=== PATIENT | female | born 1940 | race African-American/Black ===

== ENCOUNTER 2018-06-16 10:44 | Inpatient (IN) | payer MEDICARE, MEDICAID ==
[~2018-06-16] VITALS: Ht 165.1 cm; Wt 89.4 kg
[2018-06-16 11:00] VITALS: BP 133/63
[2018-06-16] MEDS ORDERED: SYNTHROID137 MCG ORAL (11:07)
[2018-06-16] MEDS ORDERED: NORVASC10 MG ORAL (11:07)
[2018-06-16] MEDS ORDERED: FUROSEMIDE20 M1 ORAL (11:07)
[2018-06-16] MEDS ORDERED: Albuterol/Ipratropium 3ml neb HHN ONE (11:15)
[2018-06-16 11:25] LABS: BASOPHILS % (AUTO) 0.7 % (0.0-2.0); EOSINOPHILS % (AUTO) 4.3 % (0.0-3.0); HEMATOCRIT 40.7 % (37.0-47.0); HEMOGLOBIN 12.8 G/DL (12.0-16.0); LYMPHOCYTES % (AUTO) 15.3 % (20.0-45.0); MEAN CORPUSCULAR VOLUME 88 FL (80-99); MONOCYTES % (AUTO) 6.4 % (1.0-10.0); NEUTROPHILS % (AUTO) 73.3 % (45.0-75.0); PLATELET COUNT 234 K/UL (150-450); RED BLOOD COUNT 4.66 M/UL (4.20-5.40); RED CELL DISTRIBUTION WIDTH 12.5 % (11.6-14.8); WHITE BLOOD COUNT 7.3 K/UL (4.8-10.8)
[2018-06-16 11:40] LABS: ANION GAP 10 mmol/L (5-15); BLOOD UREA NITROGEN 9 mg/dL (7-18); CALCIUM 9.1 MG/DL (8.5-10.1); CARBON DIOXIDE 32 MMOL/L (21-32); CHLORIDE 100 MMOL/L (98-107); CREATININE 0.8 MG/DL (0.55-1.30); POTASSIUM 3.3 MMOL/L (3.5-5.1); SODIUM 142 MMOL/L (136-145)
[2018-06-16 11:44] LABS: ALANINE AMINOTRANSFERASE 25 U/L (12-78); ALBUMIN 3.9 G/DL (3.4-5.0); ALBUMIN/GLOBULIN RATIO 0.8 (1.0-2.7); ALKALINE PHOSPHATASE 67 U/L (46-116); ASPARTATE AMINO TRANSFERASE 27 U/L (15-37); BILIRUBIN,TOTAL 0.3 MG/DL (0.2-1.0)
[2018-06-16] MEDS ORDERED: Solu-MEDROL 125mg Inj IVP ONE (11:45)
[2018-06-16] MEDS: Albuterol ud Inhalation HHN SCH ×5 (11:56→12:40)
--- NOTE | 2018-06-16 11:56 | Emergency Room Report ---
History of Present Illness General Chief Complaint: Dyspnea/Respdistress Source: Patient Present Illness HPI 77F with sob about two days. Has COPD and has been using inhaler, no steroids. No fever, minimal nonproductive cough. No chest pain. No leg pain/swelling, no travel. This feels to patient like her COPD exacerbation. Allergies: Coded Allergies: No Known Allergies (Unverified , 06/16/18) Patient History Now: No Nursing Documentation-PMH Hx Cardiac Problems: Yes Hx Hypertension: Yes Hx Asthma: Yes - bronchitis Hx Diabetes: Yes Review of Systems Constitutional: Reports: see HPI Eye: Reports: no symptoms ENT: Reports: no symptoms Respiratory: Reports: shortness of breath, wheezing, KIRKPATRICK Cardiovascular: Reports: no symptoms Gastrointestinal: Reports: no symptoms Genitourinary: Reports: no symptoms Musculoskeletal: Reports: no symptoms Skin: Reports: no symptoms Psychiatric: Reports: no symptoms Neurological: Reports: no symptoms Endocrine: Reports: no symptoms Hematologic/Lymphatic: Reports: no symptoms Allergic: Reports: no symptoms All Other Systems: negative except mentioned in HPI Physical Exam Vital Signs Date Time Temp Pulse Resp B/P (MAP) Pulse Ox O2 Delivery O2 Flow Rate FiO2 06/16/18 10:53 97.3 98 12 152/82 92 Room Air 06/16/18 11:24 21 Sp02 EP Interpretation: reviewed, normal General Appearance: normal inspection, well appearing, no apparent distress, alert, GCS 15, non-toxic Head: normocephalic, atraumatic Eyes: bilateral eye normal inspection, bilateral eye PERRL, bilateral eye EOMI ENT: normal ENT inspection, hearing grossly normal, normal pharynx, no angioedema, normal voice, moist mucus membranes Neck: normal inspection, full range of motion, supple, no meningismus, no bony tend Respiratory: no retraction, no accessory muscle use, respiratory distress, wheezing - I:E 1:3 Cardiovascular #1: normal inspection, regular rate, rhythm, no edema Gastrointestinal: normal inspection, normal bowel sounds, non tender, soft, no mass, non-distended Musculoskeletal: gait/station normal, normal range of motion Neurologic: normal inspection, alert, oriented x3, responsive, motor strength/ tone normal Psychiatric: normal inspection, judgement/insight normal, memory normal Suicide Risk Assessment: Suicidal Ideation: No Had intent to initiate attempt: No Pt's plan for suicide attempt: No Has means to complete attempt: No Skin: normal inspection, normal color, no rash, warm/dry Medical Decision Making Diagnostic Impression: Primary Impression: COPD exacerbation ER Course one hour: after first round of nebs only minimal improvement, rr ~20, still insp /expir wheeze all islas I:E 1:3 two hours: +/- slight improvement in that there is slightly improved air exchange but wheezing is essentially the same after four nebs and Solu-Medrol Will admit to monitor resp status and repeated nebs. Dr. Watson aware. EKG Diagnostic Results EKG Time: 12:53 EP Interpretation: 86 Rate: normal Rhythm: NSR ST Segments: no acute changes ASA given to the pt in ED: No Rhythm Strip Diag. Results Rhythm Strip Time: 12:53 EP Interpretation: yes Rate: 87 Rhythm: NSR Last Vital Signs Date Time Temp Pulse Resp B/P (MAP) Pulse Ox O2 Delivery O2 Flow Rate FiO2 06/16/18 11:32 85 14 100 Room Air 21 06/16/18 10:53 97.3 152/82 Status: unchanged Disposition: ADMITTED INPATIENT Condition: Serious Leif Crandall M.D. Jun 16, 2018 11:56
[2018-06-16 12:00] VITALS: BP 130/62
--- NOTE | 2018-06-16 12:38 | Diagnostic Imaging Report ---
Indication: Chest pain Comparison: None A single view chest radiograph was obtained. Findings: No definite infiltrate or pulmonary vascular congestion identified. There are surgical clips at the base of the neck. The heart is enlarged. The aorta is mildly enlarged consistent with atherosclerotic vascular disease. The bones are osteopenic. Impression: No acute disease
[2018-06-16 13:00] VITALS: BP 119/57
[2018-06-16] MEDS ORDERED: LORazepam Inj 2mg/ml 1ml IV PRN (13:45)
[2018-06-16] MEDS ORDERED: Morphine Sulfate 2mg/ml Inj IVP PRN (13:45)
[2018-06-16] MEDS ORDERED: Nitroglycerin Subl 0.4mg tab SL PRN (13:45)
[2018-06-16] MEDS ORDERED: Promethazine/Codeine 5ml UD ORAL PRN (13:45)
--- NOTE | 2018-06-16 13:45 | Consultation ---
History of Present Illness General Date patient seen: Jun 16, 2018 Chief Complaint: Dyspnea/Respdistress Present Illness HPI 77 year old female with hx of CHF, HTN, DM, CAD, presented to ER with CC of sob about two days. No fever, minimal nonproductive cough. No chest pain. No leg pain/swelling, no travel. Her CXR didn't show any infiltrate. She is admitted for exacerbation of COPD. Allergies: Coded Allergies: No Known Allergies (Unverified , 06/16/18) Medication History Scheduled Amlodipine Besylate (Norvasc), 10 MG ORAL DAILY, (Reported) Biotin (Biotin), Unknown Dose PO DAILY, (Reported) Fish Oil (Fish Oil 1,000 mg Capsule), Unknown Dose ORAL DAILY, (Reported) Furosemide* (Lasix*), 40 MG ORAL DAILY, (Reported) Gabapentin* (Gabapentin*), 800 MG ORAL THREE TIMES A DAY, (Reported) Ibuprofen* (Motrin*), 800 MG ORAL THREE TIMES A DAY, (Reported) Isosorbide Dinitrate (Isordil*), 20 MG ORAL BID, (Reported) Levothyroxine Sodium* (Synthroid*), 100 MCG ORAL DAILY, (Reported) Multivitamins* (Multivitamins*), 1 TAB ORAL DAILY, (Reported) Omeprazole (Omeprazole), 40 MG ORAL DAILY, (Reported) Potassium Chloride (Potassium Chloride), 8 MEQ PO BID, (Reported) Rosuvastatin Calcium* (Crestor*), 10 MG ORAL DAILY, (Reported) Sitagliptin* (Januvia*), 100 MG ORAL DAILY, (Reported) Vitamin D (Vitamin D3), Unknown Dose ORAL DAILY, (Reported) Miscellaneous Medications Albuterol Sulfate (Ventolin Hfa), Unknown Dose INH, (Reported) Discontinued Medications Furosemide* (Lasix*), 40 MG ORAL DAILY, (Reported) Discontinued Reason: Prescription changed Levothyroxine Sodium (Synthroid), 100 MCG ORAL DAILY, (Reported) Discontinued Reason: Prescription changed Patient History Healthcare decision maker Resuscitation status Advanced Directive on File Past Medical/Surgical History Past Medical/Surgical History: (1) History of chronic CHF (2) Hypothyroidism (3) History of hypertension Review of Systems All Other Systems: negative except mentioned in HPI Physical Exam General Appearance: WD/WN Lines, tubes and drains: peripheral HEENT: normocephalic, atraumatic, anicteric Neck: non-tender, normal alignment Respiratory/Chest: chest wall non-tender, lungs clear Breasts: no masses Last 24 Hour Vital Signs Date Time Temp Pulse Resp B/P (MAP) Pulse Ox O2 Delivery O2 Flow Rate FiO2 06/16/18 12:45 87 12 100 Room Air 21 06/16/18 12:35 82 16 96 06/16/18 12:35 21 06/16/18 12:12 21 06/16/18 12:12 83 16 99 06/16/18 12:11 84 16 100 Room Air 21 06/16/18 11:58 85 18 95 06/16/18 11:58 21 06/16/18 11:32 85 14 100 Room Air 21 06/16/18 11:24 21 06/16/18 11:24 88 22 Room Air 95 06/16/18 11:24 88 22 95 21 06/16/18 11:00 97.5 84 14 133/63 100 Room Air 06/16/18 11:00 83 18 Room Air 06/16/18 10:53 97.3 98 12 152/82 92 Room Air Laboratory Tests Test 06/16/18 10:50 White Blood Count 7.3 K/UL (4.8-10.8) Red Blood Count 4.66 M/UL (4.20-5.40) Hemoglobin 12.8 G/DL (12.0-16.0) Hematocrit 40.7 % (37.0-47.0) Mean Corpuscular Volume 88 FL (80-99) Mean Corpuscular Hemoglobin 27.5 PG (27.0-31.0) Mean Corpuscular Hemoglobin Concent 31.4 G/DL (32.0-36.0) L Red Cell Distribution Width 12.5 % (11.6-14.8) Platelet Count 234 K/UL (150-450) Mean Platelet Volume 8.2 FL (6.5-10.1) Neutrophils (%) (Auto) 73.3 % (45.0-75.0) Lymphocytes (%) (Auto) 15.3 % (20.0-45.0) L Monocytes (%) (Auto) 6.4 % (1.0-10.0) Eosinophils (%) (Auto) 4.3 % (0.0-3.0) H Basophils (%) (Auto) 0.7 % (0.0-2.0) Sodium Level 142 MMOL/L (136-145) Potassium Level 3.3 MMOL/L (3.5-5.1) L Chloride Level 100 MMOL/L (98-107) Carbon Dioxide Level 32 MMOL/L (21-32) Anion Gap 10 mmol/L (5-15) Blood Urea Nitrogen 9 mg/dL (7-18) Creatinine 0.8 MG/DL (0.55-1.30) Estimat Glomerular Filtration Rate mL/min (>60) Glucose Level 173 MG/DL (74-106) H Calcium Level 9.1 MG/DL (8.5-10.1) Total Bilirubin 0.3 MG/DL (0.2-1.0) Aspartate Amino Transf (AST/SGOT) 27 U/L (15-37) Alanine Aminotransferase (ALT/SGPT) 25 U/L (12-78) Alkaline Phosphatase 67 U/L (46-116) Total Protein 8.7 G/DL (6.4-8.2) H Albumin 3.9 G/DL (3.4-5.0) Globulin 4.8 g/dL Albumin/Globulin Ratio 0.8 (1.0-2.7) L Height (Feet): 5 Height (Inches): 5.00 Weight (Pounds): 190 Medications Current Medications Medications (Trade) Dose Ordered Sig/Kathryn Route PRN Reason Start Time Stop Time Status Last Admin Dose Admin Albuterol Sulfate (Proventil) 2.5 mg Q15M HHN 06/16/18 11:45 06/21/18 11:44 06/16/18 12:40 Albuterol/ Ipratropium (Albuterol/ Ipratropium) 3 ml EVERY 4 HOURS PRN HHN dyspnea 06/16/18 13:45 06/21/18 13:44 UNV Amlodipine Besylate (Norvasc) 10 mg DAILY ORAL 06/17/18 09:00 07/17/18 08:59 UNV Dextrose (Dextrose 50%) 25 ml Q30M PRN IV Hypoglycemia 06/16/18 13:45 07/16/18 13:44 UNV Dextrose (Dextrose 50%) 50 ml Q30M PRN IV Hypoglycemia 06/16/18 13:45 07/16/18 13:44 UNV Heparin Sodium (Porcine) (Heparin 5000 units/ml) 5,000 units EVERY 12 HOURS SUBQ 06/16/18 21:00 07/16/18 20:59 UNV Levothyroxine Sodium (Synthroid) 125 mcg DAILY@0630 ORAL 06/17/18 06:30 07/17/18 06:29 UNV Lorazepam (Ativan 2mg/ml 1ml) 0.5 mg Q4H PRN IV For Anxiety 06/16/18 13:45 06/23/18 13:44 UNV Methylprednisolone Sodium Succinate (Solu-MEDROL) 60 mg EVERY 6 HOURS IV 06/16/18 18:00 07/16/18 17:59 UNV Morphine Sulfate (Morphine Sulfate) 2 mg EVERY 4 HOURS PRN IVP severe pain 7-10 06/16/18 13:45 06/23/18 13:44 UNV Nitroglycerin (Ntg) 0.4 mg Q5M X 3 DOSES PRN SL Prn Chest Pain 06/16/18 13:45 07/16/18 13:44 UNV Ondansetron HCl (Zofran) 4 mg Q6H PRN IVP Nausea & Vomiting 06/16/18 13:45 07/16/18 13:44 UNV Piperacillin Sod/ Tazobactam Sod 2.25 gm/Dextrose 55 ml @ 110 mls/hr EVERY 8 HOURS IV 06/16/18 14:00 06/21/18 13:59 UNV Promethazine HCl/ Codeine (Phenergan with Codeine) 5 ml EVERY 6 HOURS PRN ORAL cough 06/16/18 13:45 07/16/18 13:44 UNV Temazepam (Restoril) 15 mg HSPRN PRN ORAL Insomnia 06/16/18 13:45 06/23/18 13:44 UNV Theophylline (Juan M-Dur) 100 mg EVERY 12 HOURS ORAL 06/16/18 21:00 07/16/18 20:59 UNV Assessment/Plan Problem List: (1) COPD exacerbation ICD Codes: J44.1 - Chronic obstructive pulmonary disease with (acute) exacerbation SNOMED: 655368093 (2) Hypothyroidism ICD Codes: E03.9 - Hypothyroidism, unspecified SNOMED: 64138893 (3) History of chronic CHF ICD Codes: Z86.79 - Personal history of other diseases of the circulatory system SNOMED: 401871172 (4) History of hypertension ICD Codes: Z86.79 - Personal history of other diseases of the circulatory system SNOMED: 896011853 Assessment/Plan respiratory treatment iv steroids iv abx check sputum check T3, T4 continue synthyroid dvt prophylaxis Carrie Scales MD Jun 16, 2018 13:45
[2018-06-16 14:00] VITALS: BP 150/81
[2018-06-16 15:02] VITALS: BP 133/63
[2018-06-16] MEDS: Albuterol/Ipratropium 3ml neb HHN PRN ×2 (15:25→21:52)
[2018-06-16] MEDS ORDERED: SYNTHROID100 MCG ORAL (17:28)
[2018-06-16] MEDS ORDERED: FUROSEMIDE40 MG ORAL (17:28)
[2018-06-16] MEDS ORDERED: JANUVIA25 MG ORAL (17:37)
[2018-06-16] MEDS ORDERED: POTASSIUM CHLOR8 ME2 PO (17:37)
[2018-06-16] MEDS ORDERED: ISORDIL40 MG ORAL (17:37)
[2018-06-16] MEDS ORDERED: BIOTIN10 MG PO (17:37)
[2018-06-16] MEDS ORDERED: GABAPENTIN800 MG ORAL (17:37)
[2018-06-16] MEDS ORDERED: OMEPRAZOLE40 M1 ORAL (17:37)
[2018-06-16] MEDS ORDERED: IBUPROFEN600 MG ORAL (17:37)
[2018-06-16] MEDS ORDERED: FISH OIL CAP1000 MG ORAL (17:37)
[2018-06-16] MEDS ORDERED: VENTOLIN HFA18 GM INH (17:37)
[2018-06-16] MEDS ORDERED: MULTIVITAMINS1 EAC2 ORAL (17:37)
[2018-06-16] MEDS ORDERED: CRESTOR10 M2 ORAL (17:37)
[2018-06-16] MEDS ORDERED: VITAMIN D400 INTLU ORAL (17:37)
[2018-06-16 20:00] VITALS: BP 148/76
[2018-06-16] MEDS: Solu-MEDROL 125mg Inj IV SCH (21:06)
[2018-06-16] MEDS: Piperacillin/Tazobactam 3.375 GM in D5W 110 ML IVPB SCH (21:07)
[2018-06-16] MEDS: sitaGLIPtin 50mg tab ORAL SCH (21:08)
[2018-06-16] MEDS: Theophylline ER 100mg ORAL SCH (21:08)
[2018-06-16] MEDS: Heparin 5000 units/ml inj SUBQ SCH (21:09)
--- NOTE | 2018-06-16 22:15 | History and Physical Report ---
DATE OF ADMISSION: 06/16/2018 APPROXIMATE TIME: 2 p.m. SERVICE PROMOTER SALESPERSON: Carrie Scales M.D. CHIEF COMPLAINT: Shortness of breath and COPD exacerbation. BRIEF HISTORY: A 77-year-old female, who lives at home, presented with increased shortness of breath for about a month intermittently. The patient is slightly wheezing, feeling very weak, came to [place], diagnosed with COPD exacerbation, and being admitted shortly. Currently calm and slight short of breath in the ER g[place]. No complaint. REVIEW OF SYSTEMS: No chest pain. Slight short of breath. No nausea, vomiting, or diarrhea. PAST MEDICAL HISTORY: Includes COPD, hypothyroid, diabetes, and hypertension. PAST SURGICAL HISTORY: Thyroidectomy. ALLERGIES: Denies. SOCIAL HISTORY: No smoking. No alcohol. No intravenous drug abuse. FAMILY HISTORY: Noncontributory. PHYSICAL EXAMINATION: GENERAL: Slightly anxious in bed, oriented x3, slight short of breath. VITAL SIGNS: Temperature is not given, pulse 87, respirations 12, and blood pressure is pending. CARDIOVASCULAR: No murmur. LUNGS: Poor air exchange. Slight wheeze bilaterally. ABDOMEN: Bowel sounds positive. Nontender and nondistended. EXTREMITIES: No cyanosis, clubbing, or edema. NEUROLOGIC: The patient moves all extremities, slightly weak. LABORATORY DATA: CBC is normal. BMP shows potassium 3.3 and glucose 173. Otherwise, BMP is normal. MEDICATIONS: Include amlodipine, levothyroxine, heparin, theophylline, methylprednisolone, Zosyn, lorazepam, morphine, nitroglycerin, and Zofran. ASSESSMENT: 1. Chronic obstructive pulmonary disease exacerbation. 2. Wheezing. 3. Diabetes. 4. Hypertension. 5. Hypothyroid. 6. Hypokalemia. PLAN: 1. O2 and pulmonary treatment. 2. Antibiotics as ordered. 3. Blood pressure and blood sugar control. 4. Taper off steroids. 5. Dietary followup. 6. OT, PT, and dietary evaluation. 7. CBC and BMP in the morning. 8. Continue to follow this patient. Johnny Watson D.O. DR: PINEDA JOB#: [id number] CC:
[2018-06-17] VITALS: BP_SYST 147; BP_SYST 148; BP_DIAS 68; BP_DIAS 76
[2018-06-17] MEDS: Solu-MEDROL 125mg Inj IV SCH ×3 (01:21→11:54)
[2018-06-17] MEDS: Albuterol/Ipratropium 3ml neb HHN PRN (03:29)
[2018-06-17 04:00] VITALS: BP_SYST 121; BP_SYST 147; BP_DIAS 53; BP_DIAS 68
[2018-06-17] MEDS: Piperacillin/Tazobactam 3.375 GM in D5W 110 ML IVPB SCH ×3 (04:28→23:20)
[2018-06-17] MEDS: Levothyroxine 125mcg tab ORAL SCH (06:35)
[2018-06-17 07:18] LABS: HEMATOCRIT 37.9 % (37.0-47.0); HEMOGLOBIN 12.4 G/DL (12.0-16.0); MEAN CORPUSCULAR VOLUME 87 FL (80-99); PLATELET COUNT 196 K/UL (150-450); RED BLOOD COUNT 4.36 M/UL (4.20-5.40); RED CELL DISTRIBUTION WIDTH 12.4 % (11.6-14.8); WHITE BLOOD COUNT 4.6 K/UL (4.8-10.8)
[2018-06-17 07:33] LABS: ANION GAP 9 mmol/L (5-15); BLOOD UREA NITROGEN 12 mg/dL (7-18); CALCIUM 9.4 MG/DL (8.5-10.1); CARBON DIOXIDE 31 MMOL/L (21-32); CHLORIDE 102 MMOL/L (98-107); CREATININE 0.7 MG/DL (0.55-1.30); POTASSIUM 3.1 MMOL/L (3.5-5.1); SODIUM 142 MMOL/L (136-145)
[2018-06-17 08:00] VITALS: BP 120/54
[2018-06-17] MEDS: Theophylline ER 100mg ORAL SCH ×2 (09:14→21:23)
[2018-06-17] MEDS: Heparin 5000 units/ml inj SUBQ SCH ×2 (09:15→21:24)
[2018-06-17] MEDS: Albuterol/Ipratropium 3ml neb HHN SCH ×4 (11:34→23:33)
[2018-06-17 12:00] VITALS: BP 126/58
--- NOTE | 2018-06-17 12:37 | Pulmonology Progress Note ---
Assessment/Plan Problems: (1) COPD exacerbation (2) Hypothyroidism (3) History of chronic CHF (4) History of hypertension Assessment/Plan doing better respiratory treatment iv steroids, taper fast iv abx check sputum check T3, T4 continue synthyroid dvt prophylaxis Subjective ROS Limited/Unobtainable: No Constitutional: Reports: no symptoms HEENT: Repors: no symptoms Respiratory: Reports: no symptoms Allergies: Coded Allergies: No Known Allergies (Unverified , 06/16/18) Objective Last 24 Hour Vital Signs Date Time Temp Pulse Resp B/P (MAP) Pulse Ox O2 Delivery O2 Flow Rate FiO2 06/17/18 12:00 98.1 92 20 126/58 (80) 96 06/17/18 11:36 88 22 Room Air 95 06/17/18 09:14 99 120/54 06/17/18 09:00 Nasal Cannula 2.0 Nasal Cannula 2.0 06/17/18 08:00 98.4 99 20 120/54 (76) 96 06/17/18 07:46 107 06/17/18 04:00 98.2 108 20 121/53 (75) 95 06/17/18 04:00 108 06/17/18 03:40 107 20 97 Nasal Cannula 2.0 06/17/18 03:29 106 22 94 Nasal Cannula 2.0 06/17/18 00:00 94 06/17/18 00:00 99.0 110 20 147/68 (94) 96 06/16/18 22:03 90 18 99 Nasal Cannula 2.0 28 06/16/18 22:03 21 06/16/18 21:53 89 20 97 Nasal Cannula 2.0 06/16/18 20:00 108 06/16/18 20:00 98.1 108 20 148/76 (100) 96 06/16/18 19:52 102 20 Nasal Cannula 2.0 06/16/18 19:30 Nasal Cannula 2.0 06/16/18 17:56 97.9 100 17 140/71 95 Nasal Cannula 2.0 06/16/18 15:33 Nasal Cannula 2.0 28 06/16/18 15:25 21 06/16/18 15:25 96 20 95 06/16/18 15:02 90 30 133/63 94 Nasal Cannula 2.0 06/16/18 14:00 95 18 150/81 90 Room Air 06/16/18 13:00 90 16 119/57 100 Room Air 06/16/18 12:45 87 12 100 Room Air 21 Intake and Output 06/16/18 06/17/18 18:59 06:59 Intake Total 200 ml Balance 200 ml Intake Oral 200 ml # Voids 1 1 # Bowel Movements 1 General Appearance: cachetic HEENT: normocephalic, atraumatic Respiratory/Chest: chest wall non-tender, lungs clear Breasts: no masses Cardiovascular: normal peripheral pulses Abdomen: normal bowel sounds, soft, non tender Extremities: no cyanosis Skin: no rash Neurologic/Psychiatric: air bag stripper II-XII grossly normal Lymphatic: no neck adenopathy Laboratory Tests 06/17/18 05:47: White Blood Count 4.6L, Red Blood Count 4.36, Hemoglobin 12.4, Hematocrit 37.9, Mean Corpuscular Volume 87, Mean Corpuscular Hemoglobin 28.4, Mean Corpuscular Hemoglobin Concent 32.7, Red Cell Distribution Width 12.4, Platelet Count 196, Mean Platelet Volume 8.0, Neutrophils (%) (Auto) , Lymphocytes (%) (Auto) , Monocytes (%) (Auto) , Eosinophils (%) (Auto) , Basophils (%) (Auto) , Differential Total Cells Counted 100, Neutrophils % (Manual) 84H, Lymphocytes % (Manual) 13L, Monocytes % (Manual) 3, Eosinophils % (Manual) 0, Basophils % ( Manual) 0, Band Neutrophils 0, Platelet Estimate Adequate, Platelet Morphology Normal, Red Blood Cell Morphology Normal, Sodium Level 142, Potassium Level 3.1L , Chloride Level 102, Carbon Dioxide Level 31, Anion Gap 9, Blood Urea Nitrogen 12, Creatinine 0.7, Estimat Glomerular Filtration Rate , Glucose Level 162H, Calcium Level 9.4, Thyroid Stimulating Hormone (TSH) 1.935 Current Medications Medications (Trade) Dose Ordered Sig/Kathryn Route PRN Reason Start Time Stop Time Status Last Admin Dose Admin Acetaminophen (Tylenol) 650 mg Q6H PRN ORAL Mild Pain/Temp > 100.5 06/17/18 03:00 07/17/18 02:59 06/17/18 03:23 Albuterol/ Ipratropium (Albuterol/ Ipratropium) 3 ml Q4H PRN HHN dyspnea 06/16/18 13:45 06/21/18 13:44 06/17/18 03:29 Albuterol/ Ipratropium (Albuterol/ Ipratropium) 3 ml Q4HRT HHN 06/17/18 11:00 06/22/18 10:59 06/17/18 11:34 Amlodipine Besylate (Norvasc) 10 mg DAILY ORAL 06/17/18 09:00 07/17/18 08:59 06/17/18 09:14 Dextrose (Dextrose 50%) 25 ml Q30M PRN IV Hypoglycemia 06/16/18 13:45 07/16/18 13:44 Dextrose (Dextrose 50%) 50 ml Q30M PRN IV Hypoglycemia 06/16/18 13:45 07/16/18 13:44 Heparin Sodium (Porcine) (Heparin 5000 units/ml) 5,000 units EVERY 12 HOURS SUBQ 06/16/18 21:00 07/16/18 20:59 06/17/18 09:15 Levothyroxine Sodium (Synthroid) 125 mcg DAILY@0630 ORAL 06/17/18 06:30 07/17/18 06:29 06/17/18 06:35 Lorazepam (Ativan 2mg/ml 1ml) 0.5 mg Q4H PRN IV For Anxiety 06/16/18 13:45 06/23/18 13:44 Methylprednisolone Sodium Succinate (Solu-MEDROL) 60 mg EVERY 6 HOURS IV 06/16/18 18:00 07/16/18 17:59 06/17/18 11:54 Morphine Sulfate (Morphine Sulfate) 2 mg Q4H PRN IVP severe pain 7-10 06/16/18 13:45 06/23/18 13:44 Nitroglycerin (Ntg) 0.4 mg Q5M X 3 DOSES PRN SL Prn Chest Pain 06/16/18 13:45 07/16/18 13:44 Ondansetron HCl (Zofran) 4 mg Q6H PRN IVP Nausea & Vomiting 06/16/18 13:45 07/16/18 13:44 Piperacillin Sod/ Tazobactam Sod 3.375 gm/Dextrose 110 ml @ 27.5 mls/hr Q8H IVPB 06/16/18 20:00 06/23/18 19:59 06/17/18 11:53 Promethazine HCl/ Codeine (Phenergan with Codeine) 5 ml Q6H PRN ORAL cough 06/16/18 13:45 07/16/18 13:44 Sitagliptin Phosphate (Januvia) 50 mg QHS ORAL 06/16/18 21:00 07/16/18 20:59 06/16/18 21:08 Temazepam (Restoril) 15 mg HSPRN PRN ORAL Insomnia 06/16/18 13:45 06/23/18 13:44 Theophylline (Juan M-Dur) 100 mg EVERY 12 HOURS ORAL 06/16/18 21:00 07/16/18 20:59 06/17/18 09:14 Carrie Scales MD Jun 17, 2018 12:37
--- NOTE | 2018-06-17 15:09 | General Progress Note ---
Assessment/Plan Problem List: (1) SOB (shortness of breath) ICD Codes: R06.02 - Shortness of breath SNOMED: 280475320 (2) History of chronic CHF ICD Codes: Z86.79 - Personal history of other diseases of the circulatory system SNOMED: 480146366 (3) Hypothyroidism ICD Codes: E03.9 - Hypothyroidism, unspecified SNOMED: 09897296 (4) History of hypertension ICD Codes: Z86.79 - Personal history of other diseases of the circulatory system SNOMED: 469114249 (5) COPD exacerbation ICD Codes: J44.1 - Chronic obstructive pulmonary disease with (acute) exacerbation SNOMED: 415121838 Status: unchanged Assessment/Plan o2 pulm tx abx ot pt diet cbc bmap am Subjective Constitutional: Reports: weakness Respiratory: Reports: shortness of breath, wheezing Allergies: Coded Allergies: No Known Allergies (Unverified , 06/16/18) All Systems: reviewed and negative except above Subjective o2nc Objective Last 24 Hour Vital Signs Date Time Temp Pulse Resp B/P (MAP) Pulse Ox O2 Delivery O2 Flow Rate FiO2 06/17/18 12:00 98.1 92 20 126/58 (80) 96 06/17/18 11:51 112 06/17/18 11:36 88 22 Room Air 95 06/17/18 09:14 99 120/54 06/17/18 09:00 Nasal Cannula 2.0 Nasal Cannula 2.0 06/17/18 08:00 98.4 99 20 120/54 (76) 96 06/17/18 07:46 107 06/17/18 04:00 98.2 108 20 121/53 (75) 95 06/17/18 04:00 108 06/17/18 03:40 107 20 97 Nasal Cannula 2.0 06/17/18 03:29 106 22 94 Nasal Cannula 2.0 28 06/17/18 00:00 94 06/17/18 00:00 99.0 110 20 147/68 (94) 96 06/16/18 22:03 90 18 99 Nasal Cannula 2.0 28 06/16/18 22:03 21 06/16/18 21:53 89 20 97 Nasal Cannula 2.0 28 06/16/18 20:00 108 06/16/18 20:00 98.1 108 20 148/76 (100) 96 06/16/18 19:52 102 20 Nasal Cannula 2.0 06/16/18 19:30 Nasal Cannula 2.0 06/16/18 17:56 97.9 100 17 140/71 95 Nasal Cannula 2.0 06/16/18 15:33 Nasal Cannula 2.0 06/16/18 15:25 21 06/16/18 15:25 96 20 95 Intake and Output 06/16/18 06/17/18 18:59 06:59 Intake Total 200 ml Balance 200 ml Intake Oral 200 ml # Voids 1 1 # Bowel Movements 1 Laboratory Tests 06/17/18 05:47: White Blood Count 4.6L, Red Blood Count 4.36, Hemoglobin 12.4, Hematocrit 37.9, Mean Corpuscular Volume 87, Mean Corpuscular Hemoglobin 28.4, Mean Corpuscular Hemoglobin Concent 32.7, Red Cell Distribution Width 12.4, Platelet Count 196, Mean Platelet Volume 8.0, Neutrophils (%) (Auto) , Lymphocytes (%) (Auto) , Monocytes (%) (Auto) , Eosinophils (%) (Auto) , Basophils (%) (Auto) , Differential Total Cells Counted 100, Neutrophils % (Manual) 84H, Lymphocytes % (Manual) 13L, Monocytes % (Manual) 3, Eosinophils % (Manual) 0, Basophils % ( Manual) 0, Band Neutrophils 0, Platelet Estimate Adequate, Platelet Morphology Normal, Red Blood Cell Morphology Normal, Sodium Level 142, Potassium Level 3.1L , Chloride Level 102, Carbon Dioxide Level 31, Anion Gap 9, Blood Urea Nitrogen 12, Creatinine 0.7, Estimat Glomerular Filtration Rate , Glucose Level 162H, Calcium Level 9.4, Thyroid Stimulating Hormone (TSH) 1.935 Height (Feet): 5 Height (Inches): 5.00 Weight (Pounds): 197 General Appearance: alert EENT: normal ENT inspection Neck: normal alignment Cardiovascular: normal peripheral pulses, normal rate, regular rhythm Respiratory/Chest: chest wall non-tender, lungs clear, decreased breath sounds Abdomen: normal bowel sounds, non tender, soft Extremities: normal inspection Edema: no edema noted Arm (L), no edema noted Arm (R), no edema noted Leg (L), no edema noted Leg (R), no edema noted Pedal (L), no edema noted Pedal (R), no edema noted Generalized Neurologic: responsive, motor weakness Skin: normal pigmentation, warm/dry Johnny Watson DO Jun 17, 2018 15:09
[2018-06-17 16:00] VITALS: BP 152/94
[2018-06-17 20:00] VITALS: BP 135/74
[2018-06-17] MEDS: sitaGLIPtin 50mg tab ORAL SCH (21:22)
[2018-06-18] VITALS: BP 144/85
[2018-06-18] MEDS: Albuterol/Ipratropium 3ml neb HHN SCH ×6 (02:37→22:46)
[2018-06-18 04:00] VITALS: BP 116/67
[2018-06-18] MEDS: Levothyroxine 125mcg tab ORAL SCH (06:11)
[2018-06-18] MEDS: Piperacillin/Tazobactam 3.375 GM in D5W 110 ML IVPB SCH ×3 (06:14→23:00)
[2018-06-18 08:00] VITALS: BP 135/74
[2018-06-18] MEDS: Theophylline ER 100mg ORAL SCH ×2 (08:48→21:35)
[2018-06-18] MEDS: Heparin 5000 units/ml inj SUBQ SCH ×2 (08:50→21:43)
[2018-06-18] MEDS ORDERED: Solu-MEDROL 125mg Inj IV SCH (09:00)
[2018-06-18 09:24] LABS: ANION GAP 10 mmol/L (5-15); BLOOD UREA NITROGEN 12 mg/dL (7-18); CALCIUM 9.7 MG/DL (8.5-10.1); CARBON DIOXIDE 30 MMOL/L (21-32); CHLORIDE 103 MMOL/L (98-107); CREATININE 0.8 MG/DL (0.55-1.30); POTASSIUM 3.5 MMOL/L (3.5-5.1); SODIUM 142 MMOL/L (136-145)
[2018-06-18 09:42] LABS: HEMOGLOBIN 13.7 G/DL (12.0-16.0); MEAN CORPUSCULAR VOLUME 87 FL (80-99); PLATELET COUNT 266 K/UL (150-450); RED BLOOD COUNT 4.82 M/UL (4.20-5.40); RED CELL DISTRIBUTION WIDTH 12.8 % (11.6-14.8); WHITE BLOOD COUNT 11.9 K/UL (4.8-10.8)
--- NOTE | 2018-06-18 11:31 | Pulmonology Progress Note ---
Assessment/Plan Problems: (1) COPD exacerbation (2) Hypothyroidism (3) History of chronic CHF (4) History of hypertension Assessment/Plan doing better respiratory treatment iv steroids, taper fast, now 40 QD iv abx check sputum check T3, T4 continue Synthyroid dvt prophylaxis Subjective ROS Limited/Unobtainable: No Interval Events: still has productive cough of greenish sputum, but getting better. Allergies: Coded Allergies: No Known Allergies (Unverified , 06/16/18) Objective Last 24 Hour Vital Signs Date Time Temp Pulse Resp B/P (MAP) Pulse Ox O2 Delivery O2 Flow Rate FiO2 06/18/18 09:00 Nasal Cannula 2.0 Nasal Cannula 2.0 06/18/18 08:48 105 135/74 06/18/18 08:00 99.1 105 18 135/74 (94) 94 06/18/18 07:58 102 18 95 Nasal Cannula 3.0 32 06/18/18 07:57 95 Nasal Cannula 3.0 32 06/18/18 07:57 Nasal Cannula 3.0 32 06/18/18 07:50 98 22 Nasal Cannula 2.0 28 06/18/18 07:50 98 22 90 Room Air 21 06/18/18 04:00 98.9 18 116/67 (83) 97 06/18/18 04:00 88 06/18/18 02:41 96 20 96 Nasal Cannula 2.0 28 06/18/18 02:36 94 24 94 Nasal Cannula 2.0 28 06/18/18 00:00 99 06/18/18 00:00 98.0 99 20 144/85 (104) 97 06/17/18 23:42 95 20 95 Nasal Cannula 2.0 28 06/17/18 23:33 95 24 93 Nasal Cannula 2.0 28 06/17/18 21:00 Nasal Cannula 2.0 Nasal Cannula 2.0 06/17/18 20:00 99.1 95 20 135/74 (94) 94 06/17/18 20:00 95 06/17/18 19:29 99 20 97 Nasal Cannula 2.0 28 06/17/18 19:21 102 24 92 Nasal Cannula 2.0 28 06/17/18 19:19 100 24 Nasal Cannula 2.0 28 06/17/18 16:04 96 20 97 Nasal Cannula 2.0 28 06/17/18 16:00 99.0 104 21 152/94 (113) 95 06/17/18 15:52 97 20 93 Nasal Cannula 2.0 28 06/17/18 15:47 99 06/17/18 12:00 98.1 92 20 126/58 (80) 96 06/17/18 11:51 112 06/17/18 11:36 88 22 Room Air 95 Intake and Output 06/17/18 06/18/18 18:59 06:59 Intake Total 1040 ml 240 ml Balance 1040 ml 240 ml Intake Oral 1040 ml 240 ml # Voids 5 3 General Appearance: WD/WN HEENT: normocephalic, atraumatic Respiratory/Chest: chest wall non-tender, lungs clear Breasts: no masses Cardiovascular: normal peripheral pulses Abdomen: normal bowel sounds, soft, non tender, no organomegaly Neurologic/Psychiatric: rv servicer II-XII grossly normal Lymphatic: no neck adenopathy Laboratory Tests 06/18/18 07:55: White Blood Count 11.9#H, Red Blood Count 4.82, Hemoglobin 13.7, Hematocrit 42.0 , Mean Corpuscular Volume 87, Mean Corpuscular Hemoglobin 28.4, Mean Corpuscular Hemoglobin Concent 32.6, Red Cell Distribution Width 12.8, Platelet Count 266, Mean Platelet Volume 8.9, Neutrophils (%) (Auto) , Lymphocytes (%) ( Auto) , Monocytes (%) (Auto) , Eosinophils (%) (Auto) , Basophils (%) (Auto) , Neutrophils % (Manual) [Pending], Lymphocytes % (Manual) [Pending], Platelet Estimate [Pending], Platelet Morphology [Pending], Sodium Level 142, Potassium Level 3.5, Chloride Level 103, Carbon Dioxide Level 30, Anion Gap 10, Blood Urea Nitrogen 12, Creatinine 0.8, Estimat Glomerular Filtration Rate , Glucose Level 107H, Calcium Level 9.7 Current Medications Medications (Trade) Dose Ordered Sig/Kathryn Route PRN Reason Start Time Stop Time Status Last Admin Dose Admin Acetaminophen (Tylenol) 650 mg Q6H PRN ORAL Mild Pain/Temp > 100.5 06/17/18 03:00 07/17/18 02:59 06/17/18 03:23 Albuterol/ Ipratropium (Albuterol/ Ipratropium) 3 ml Q4H PRN HHN dyspnea 06/16/18 13:45 06/21/18 13:44 06/17/18 03:29 Albuterol/ Ipratropium (Albuterol/ Ipratropium) 3 ml Q4HRT HHN 06/17/18 11:00 06/22/18 10:59 06/18/18 07:51 Amlodipine Besylate (Norvasc) 10 mg DAILY ORAL 06/17/18 09:00 07/17/18 08:59 06/18/18 08:48 Dextrose (Dextrose 50%) 25 ml Q30M PRN IV Hypoglycemia 06/16/18 13:45 07/16/18 13:44 Dextrose (Dextrose 50%) 50 ml Q30M PRN IV Hypoglycemia 06/16/18 13:45 07/16/18 13:44 Heparin Sodium (Porcine) (Heparin 5000 units/ml) 5,000 units EVERY 12 HOURS SUBQ 06/16/18 21:00 07/16/18 20:59 06/18/18 08:50 Levothyroxine Sodium (Synthroid) 125 mcg DAILY@0630 ORAL 06/17/18 06:30 07/17/18 06:29 06/18/18 06:11 Lorazepam (Ativan 2mg/ml 1ml) 0.5 mg Q4H PRN IV For Anxiety 06/16/18 13:45 06/23/18 13:44 Methylprednisolone Sodium Succinate (Solu-MEDROL) 60 mg DAILY IV 06/18/18 09:00 07/16/18 17:59 06/18/18 08:48 Morphine Sulfate (Morphine Sulfate) 2 mg Q4H PRN IVP severe pain 7-10 06/16/18 13:45 06/23/18 13:44 Nitroglycerin (Ntg) 0.4 mg Q5M X 3 DOSES PRN SL Prn Chest Pain 06/16/18 13:45 07/16/18 13:44 Ondansetron HCl (Zofran) 4 mg Q6H PRN IVP Nausea & Vomiting 06/16/18 13:45 07/16/18 13:44 Piperacillin Sod/ Tazobactam Sod 3.375 gm/Dextrose 110 ml @ 27.5 mls/hr Q8H IVPB 06/17/18 23:00 06/24/18 22:59 06/18/18 06:14 Promethazine HCl/ Codeine (Phenergan with Codeine) 5 ml Q6H PRN ORAL cough 06/16/18 13:45 07/16/18 13:44 Sitagliptin Phosphate (Januvia) 50 mg QHS ORAL 06/16/18 21:00 07/16/18 20:59 06/17/18 21:22 Temazepam (Restoril) 15 mg HSPRN PRN ORAL Insomnia 06/16/18 13:45 06/23/18 13:44 Theophylline (Juan M-Dur) 100 mg EVERY 12 HOURS ORAL 06/16/18 21:00 07/16/18 20:59 06/18/18 08:48 Carrie Scales MD Jun 18, 2018 11:31
[2018-06-18 12:00] VITALS: BP 148/78
--- NOTE | 2018-06-18 12:46 | General Progress Note ---
Assessment/Plan Problem List: (1) SOB (shortness of breath) ICD Codes: R06.02 - Shortness of breath SNOMED: 350424724 (2) History of chronic CHF ICD Codes: Z86.79 - Personal history of other diseases of the circulatory system SNOMED: 102073422 (3) Hypothyroidism ICD Codes: E03.9 - Hypothyroidism, unspecified SNOMED: 80567163 (4) History of hypertension ICD Codes: Z86.79 - Personal history of other diseases of the circulatory system SNOMED: 778191514 (5) COPD exacerbation ICD Codes: J44.1 - Chronic obstructive pulmonary disease with (acute) exacerbation SNOMED: 397813101 Status: stable, progressing Assessment/Plan o2 pulm tx abx ot pt diet cbc bmp am Subjective Constitutional: Reports: weakness Respiratory: Reports: shortness of breath, wheezing Allergies: Coded Allergies: No Known Allergies (Unverified , 06/16/18) All Systems: reviewed and negative except above Subjective o2nc Objective Last 24 Hour Vital Signs Date Time Temp Pulse Resp B/P (MAP) Pulse Ox O2 Delivery O2 Flow Rate FiO2 06/18/18 12:00 98.2 98 18 148/78 (101) 93 06/18/18 11:50 90 20 96 Nasal Cannula 3.0 32 06/18/18 11:41 98 22 92 Nasal Cannula 2.0 28 06/18/18 09:00 Nasal Cannula 2.0 Nasal Cannula 2.0 06/18/18 08:48 105 135/74 06/18/18 08:00 99.1 105 18 135/74 (94) 94 06/18/18 07:58 102 18 95 Nasal Cannula 3.0 32 06/18/18 07:57 95 Nasal Cannula 3.0 32 06/18/18 07:57 Nasal Cannula 3.0 32 06/18/18 07:50 98 22 Nasal Cannula 2.0 28 06/18/18 07:50 98 22 90 Room Air 21 06/18/18 04:00 98.9 18 116/67 (83) 97 06/18/18 04:00 88 06/18/18 02:41 96 20 96 Nasal Cannula 2.0 28 06/18/18 02:36 94 24 94 Nasal Cannula 2.0 28 06/18/18 00:00 99 06/18/18 00:00 98.0 99 20 144/85 (104) 97 06/17/18 23:42 95 20 95 Nasal Cannula 2.0 28 06/17/18 23:33 95 24 93 Nasal Cannula 2.0 06/17/18 21:00 Nasal Cannula 2.0 Nasal Cannula 2.0 06/17/18 20:00 99.1 95 20 135/74 (94) 94 06/17/18 20:00 95 06/17/18 19:29 99 20 97 Nasal Cannula 2.0 28 06/17/18 19:21 102 24 92 Nasal Cannula 2.0 28 06/17/18 19:19 100 24 Nasal Cannula 2.0 28 06/17/18 16:04 96 20 97 Nasal Cannula 2.0 28 06/17/18 16:00 99.0 104 21 152/94 (113) 95 06/17/18 15:52 97 20 93 Nasal Cannula 2.0 06/17/18 15:47 99 Intake and Output 06/17/18 06/18/18 19:00 07:00 Intake Total 1040 ml 240 ml Balance 1040 ml 240 ml Intake Oral 1040 ml 240 ml # Voids 5 3 Laboratory Tests 06/18/18 07:55: White Blood Count 11.9#H, Red Blood Count 4.82, Hemoglobin 13.7, Hematocrit 42.0 , Mean Corpuscular Volume 87, Mean Corpuscular Hemoglobin 28.4, Mean Corpuscular Hemoglobin Concent 32.6, Red Cell Distribution Width 12.8, Platelet Count 266, Mean Platelet Volume 8.9, Neutrophils (%) (Auto) , Lymphocytes (%) ( Auto) , Monocytes (%) (Auto) , Eosinophils (%) (Auto) , Basophils (%) (Auto) , Differential Total Cells Counted 100, Neutrophils % (Manual) 82H, Lymphocytes % (Manual) 12L, Monocytes % (Manual) 6, Eosinophils % (Manual) 0, Basophils % ( Manual) 0, Band Neutrophils 0, Platelet Estimate Adequate, Platelet Morphology Normal, Red Blood Cell Morphology Normal, Sodium Level 142, Potassium Level 3.5 , Chloride Level 103, Carbon Dioxide Level 30, Anion Gap 10, Blood Urea Nitrogen 12, Creatinine 0.8, Estimat Glomerular Filtration Rate , Glucose Level 107H, Calcium Level 9.7 Height (Feet): 5 Height (Inches): 5.00 Weight (Pounds): 197 General Appearance: lethargic EENT: normal ENT inspection Neck: normal alignment Cardiovascular: normal rate, regularly irregular Respiratory/Chest: chest wall non-tender, decreased breath sounds Abdomen: normal bowel sounds, non tender, soft Extremities: normal inspection Edema: no edema noted Arm (L), no edema noted Arm (R), no edema noted Leg (L), no edema noted Leg (R), no edema noted Pedal (L), no edema noted Pedal (R), no edema noted Generalized Neurologic: responsive, motor weakness Skin: normal pigmentation, warm/dry Johnny Watson DO Jun 18, 2018 12:46
[2018-06-18 16:00] VITALS: BP 128/78
[2018-06-18 20:00] VITALS: BP 118/67
[2018-06-18] MEDS: sitaGLIPtin 50mg tab ORAL SCH (21:35)
[2018-06-19] VITALS (7 sets, daily range): BP systolic 115–141; BP diastolic 70–88
[2018-06-19] MEDS: Albuterol/Ipratropium 3ml neb HHN SCH ×6 (02:52→23:43)
[2018-06-19] MEDS: Levothyroxine 125mcg tab ORAL SCH (06:22)
[2018-06-19] MEDS: Piperacillin/Tazobactam 3.375 GM in D5W 110 ML IVPB SCH ×3 (06:22→22:12)
--- NOTE | 2018-06-19 08:01 | Pulmonology Progress Note ---
Assessment/Plan Assessment/Plan ASSESSMENT COPD exacerbation Hypertension Hypothyroidism Diabetes mellitus Hypokalemia PLAN OF CARE supplemental O2 to keep pulse oximetry above 90%. pulmonary toilet with HHN atc and prn and CPT IV steroids with gradual tapering down. sputum cx if able empiric abx initial CXR -no acute cardiopulmonary pathology trial of theophylline Antitussive prn fup with CXR DVT prophylaxis BP management with CCB DVT prophylaxis BS management - Januvia PT/OT OOB as tolerated supportive care monitor renal parameters , lytes, correct , lytes prn/potassium today, Mg stable TFT stable, continue current dose of Synthroid transfer to [facility] floor after IV potassium replaced case discussed and evaluated by supervising physician Subjective Allergies: Coded Allergies: No Known Allergies (Unverified , 06/16/18) Subjective afebrile, no leucocytosis, still SOB, cough with productive phlegm expectiration yellow color no hemoptysis no CP K-2.9 today Objective Last 24 Hour Vital Signs Date Time Temp Pulse Resp B/P (MAP) Pulse Ox O2 Delivery O2 Flow Rate FiO2 06/19/18 04:00 90 06/19/18 04:00 98.6 98 18 130/70 (90) 96 06/19/18 03:01 90 18 99 Nasal Cannula 2.0 28 06/19/18 02:52 88 20 97 Nasal Cannula 2.0 28 06/19/18 00:00 83 06/19/18 00:00 98.6 91 18 141/88 (105) 93 06/18/18 22:56 98 18 97 Nasal Cannula 2.0 28 06/18/18 22:46 95 20 95 Nasal Cannula 2.0 28 06/18/18 21:00 Nasal Cannula 2.0 Nasal Cannula 2.0 06/18/18 20:12 103 20 96 Nasal Cannula 2.0 28 06/18/18 20:02 94 Nasal Cannula 2.0 28 06/18/18 20:02 101 18 94 Nasal Cannula 2.0 28 06/18/18 20:02 Nasal Cannula 2.0 28 06/18/18 20:00 98.2 95 18 118/67 (84) 93 06/18/18 20:00 105 06/18/18 16:00 98.8 107 18 128/78 (95) 100 06/18/18 16:00 103 06/18/18 14:20 96 18 99 Nasal Cannula 1.0 24 06/18/18 14:11 100 20 94 Nasal Cannula 2.0 28 06/18/18 12:00 89 06/18/18 12:00 98.2 98 18 148/78 (101) 93 06/18/18 11:50 90 20 96 Nasal Cannula 3.0 32 06/18/18 11:41 98 22 92 Nasal Cannula 2.0 28 06/18/18 09:00 Nasal Cannula 2.0 Nasal Cannula 2.0 06/18/18 08:48 105 135/74 Intake and Output 06/18/18 06/19/18 19:00 07:00 Intake Total 730 ml 100 ml Balance 730 ml 100 ml Intake Oral 730 ml 100 ml # Voids 4 # Bowel Movements 1 General Appearance: no acute distress, other - awake, alert female HEENT: normocephalic, atraumatic, anicteric Respiratory/Chest: expiratory wheezing - few scattered exp wheezes Cardiovascular: normal peripheral pulses, normal rate - SR on tele , regular rhythm, no JVD Abdomen: normal bowel sounds, soft, non tender Extremities: no edema, pedal pulses normal Neurologic/Psychiatric: no motor/sensory deficits, alert, oriented x 3, responsive Musculoskeletal: normal muscle bulk Current Medications Medications (Trade) Dose Ordered Sig/Kathryn Route PRN Reason Start Time Stop Time Status Last Admin Dose Admin Acetaminophen (Tylenol) 650 mg Q6H PRN ORAL Mild Pain/Temp > 100.5 06/17/18 03:00 07/17/18 02:59 06/18/18 21:35 Albuterol/ Ipratropium (Albuterol/ Ipratropium) 3 ml Q4H PRN HHN dyspnea 06/16/18 13:45 06/21/18 13:44 06/17/18 03:29 Albuterol/ Ipratropium (Albuterol/ Ipratropium) 3 ml Q4HRT HHN 06/17/18 11:00 06/22/18 10:59 06/19/18 02:52 Amlodipine Besylate (Norvasc) 10 mg DAILY ORAL 06/17/18 09:00 07/17/18 08:59 06/18/18 08:48 Dextrose (Dextrose 50%) 25 ml Q30M PRN IV Hypoglycemia 06/16/18 13:45 07/16/18 13:44 Dextrose (Dextrose 50%) 50 ml Q30M PRN IV Hypoglycemia 06/16/18 13:45 07/16/18 13:44 Heparin Sodium (Porcine) (Heparin 5000 units/ml) 5,000 units EVERY 12 HOURS SUBQ 06/16/18 21:00 07/16/18 20:59 06/18/18 21:43 Levothyroxine Sodium (Synthroid) 125 mcg DAILY@0630 ORAL 06/17/18 06:30 07/17/18 06:29 06/19/18 06:22 Lorazepam (Ativan 2mg/ml 1ml) 0.5 mg Q4H PRN IV For Anxiety 06/16/18 13:45 06/23/18 13:44 Methylprednisolone Sodium Succinate (Solu-MEDROL) 40 mg DAILY IVP 06/19/18 09:00 07/16/18 17:59 Morphine Sulfate (Morphine Sulfate) 2 mg Q4H PRN IVP severe pain 7-10 06/16/18 13:45 06/23/18 13:44 Nitroglycerin (Ntg) 0.4 mg Q5M X 3 DOSES PRN SL Prn Chest Pain 06/16/18 13:45 07/16/18 13:44 Ondansetron HCl (Zofran) 4 mg Q6H PRN IVP Nausea & Vomiting 06/16/18 13:45 07/16/18 13:44 Piperacillin Sod/ Tazobactam Sod 3.375 gm/Dextrose 110 ml @ 27.5 mls/hr Q8H IVPB 06/17/18 23:00 06/24/18 22:59 06/19/18 06:22 Promethazine HCl/ Codeine (Phenergan with Codeine) 5 ml Q6H PRN ORAL cough 06/16/18 13:45 07/16/18 13:44 Sitagliptin Phosphate (Januvia) 50 mg QHS ORAL 06/16/18 21:00 07/16/18 20:59 06/18/18 21:35 Temazepam (Restoril) 15 mg HSPRN PRN ORAL Insomnia 06/16/18 13:45 06/23/18 13:44 Theophylline (Juan M-Dur) 100 mg EVERY 12 HOURS ORAL 06/16/18 21:00 07/16/18 20:59 06/18/18 21:35 Emmie Borrego NP Jun 19, 2018 08:01
--- NOTE | 2018-06-19 08:24 | General Progress Note ---
Assessment/Plan Problem List: (1) SOB (shortness of breath) ICD Codes: R06.02 - Shortness of breath SNOMED: 438086066 (2) History of chronic CHF ICD Codes: Z86.79 - Personal history of other diseases of the circulatory system SNOMED: 997718227 (3) Hypothyroidism ICD Codes: E03.9 - Hypothyroidism, unspecified SNOMED: 25129003 (4) History of hypertension ICD Codes: Z86.79 - Personal history of other diseases of the circulatory system SNOMED: 243525390 (5) COPD exacerbation ICD Codes: J44.1 - Chronic obstructive pulmonary disease with (acute) exacerbation SNOMED: 117537441 Status: stable, progressing Assessment/Plan o2 pulm tx abx ot pt diet cbc bmp am Subjective Constitutional: Reports: weakness Respiratory: Reports: shortness of breath, wheezing Allergies: Coded Allergies: No Known Allergies (Unverified , 06/16/18) All Systems: reviewed and negative except above Subjective o2nc Objective Last 24 Hour Vital Signs Date Time Temp Pulse Resp B/P (MAP) Pulse Ox O2 Delivery O2 Flow Rate FiO2 06/19/18 04:00 90 06/19/18 04:00 98.6 98 18 130/70 (90) 96 06/19/18 03:01 90 18 99 Nasal Cannula 2.0 28 06/19/18 02:52 88 20 97 Nasal Cannula 2.0 28 06/19/18 00:00 83 06/19/18 00:00 98.6 91 18 141/88 (105) 93 06/18/18 22:56 98 18 97 Nasal Cannula 2.0 28 06/18/18 22:46 95 20 95 Nasal Cannula 2.0 28 06/18/18 21:00 Nasal Cannula 2.0 Nasal Cannula 2.0 06/18/18 20:12 103 20 96 Nasal Cannula 2.0 28 06/18/18 20:02 94 Nasal Cannula 2.0 28 06/18/18 20:02 101 18 94 Nasal Cannula 2.0 28 06/18/18 20:02 Nasal Cannula 2.0 28 06/18/18 20:00 98.2 95 18 118/67 (84) 93 06/18/18 20:00 105 06/18/18 16:00 98.8 107 18 128/78 (95) 100 06/18/18 16:00 103 06/18/18 14:20 96 18 99 Nasal Cannula 1.0 24 06/18/18 14:11 100 20 94 Nasal Cannula 2.0 28 06/18/18 12:00 89 06/18/18 12:00 98.2 98 18 148/78 (101) 93 06/18/18 11:50 90 20 96 Nasal Cannula 3.0 32 06/18/18 11:41 98 22 92 Nasal Cannula 2.0 28 06/18/18 09:00 Nasal Cannula 2.0 Nasal Cannula 2.0 06/18/18 08:48 105 135/74 Intake and Output 06/18/18 06/19/18 19:00 07:00 Intake Total 730 ml 100 ml Balance 730 ml 100 ml Intake Oral 730 ml 100 ml # Voids 4 # Bowel Movements 1 Laboratory Tests 06/19/18 06:40: White Blood Count [Pending], Red Blood Count [Pending], Hemoglobin [Pending], Hematocrit [Pending], Mean Corpuscular Volume [Pending], Mean Corpuscular Hemoglobin [Pending], Mean Corpuscular Hemoglobin Concent [Pending], Red Cell Distribution Width [Pending], Platelet Count [Pending], Mean Platelet Volume [ Pending], Neutrophils (%) (Auto) [Pending], Lymphocytes (%) (Auto) [Pending], Monocytes (%) (Auto) [Pending], Eosinophils (%) (Auto) [Pending], Basophils (%) (Auto) [Pending], Sodium Level [Pending], Potassium Level [Pending], Chloride Level [Pending], Carbon Dioxide Level [Pending], Blood Urea Nitrogen [Pending], Creatinine [Pending], Estimat Glomerular Filtration Rate [Pending], Glucose Level [Pending], Calcium Level [Pending] Height (Feet): 5 Height (Inches): 5.00 Weight (Pounds): 197 General Appearance: lethargic EENT: normal ENT inspection Neck: normal alignment Cardiovascular: normal peripheral pulses, normal rate, regular rhythm Respiratory/Chest: chest wall non-tender, decreased breath sounds Abdomen: normal bowel sounds, non tender, soft Extremities: normal range of motion Edema: no edema noted Arm (L), no edema noted Arm (R), no edema noted Leg (L), no edema noted Leg (R), no edema noted Pedal (L), no edema noted Pedal (R), no edema noted Generalized Neurologic: responsive, motor weakness Skin: normal pigmentation, warm/dry Johnny Watson DO Jun 19, 2018 08:24
[2018-06-19 08:28] LABS: BASOPHILS % (AUTO) 0.2 % (0.0-2.0); EOSINOPHILS % (AUTO) 0.1 % (0.0-3.0); HEMATOCRIT 41.5 % (37.0-47.0); HEMOGLOBIN 13.5 G/DL (12.0-16.0); LYMPHOCYTES % (AUTO) 17.1 % (20.0-45.0); MEAN CORPUSCULAR VOLUME 86 FL (80-99); MONOCYTES % (AUTO) 8.4 % (1.0-10.0); NEUTROPHILS % (AUTO) 74.3 % (45.0-75.0); PLATELET COUNT 236 K/UL (150-450); RED BLOOD COUNT 4.82 M/UL (4.20-5.40); RED CELL DISTRIBUTION WIDTH 12.5 % (11.6-14.8); WHITE BLOOD COUNT 8.6 K/UL (4.8-10.8)
[2018-06-19 08:48] LABS: ANION GAP 7 mmol/L (5-15); BLOOD UREA NITROGEN 16 mg/dL (7-18); CARBON DIOXIDE 31 MMOL/L (21-32); CHLORIDE 104 MMOL/L (98-107); CREATININE 0.9 MG/DL (0.55-1.30); POTASSIUM 2.9 MMOL/L (3.5-5.1); SODIUM 142 MMOL/L (136-145)
[2018-06-19] MEDS: Theophylline ER 100mg ORAL SCH ×2 (08:53→22:10)
[2018-06-19] MEDS: Heparin 5000 units/ml inj SUBQ SCH ×2 (08:53→22:10)
[2018-06-19] MEDS ORDERED: Solu-MEDROL 40mg Inj IVP SCH (09:00)
[2018-06-19] MEDS ORDERED: Albuterol/Ipratropium 3ml neb HHN PRN ×2 (12:33→20:40)
[2018-06-19] MEDS ORDERED: LORazepam Inj 2mg/ml 1ml IV PRN (20:40)
[2018-06-19] MEDS ORDERED: Promethazine/Codeine 5ml UD ORAL PRN (20:41)
[2018-06-19] MEDS ORDERED: Nitroglycerin Subl 0.4mg tab SL PRN (20:45)
[2018-06-19] MEDS: sitaGLIPtin 50mg tab ORAL SCH (22:09)
[2018-06-20] VITALS: BP 123/77
[2018-06-20] MEDS: Morphine Sulfate 2mg/ml Inj IVP PRN ×3 (00:19→18:45)
[2018-06-20] MEDS: Albuterol/Ipratropium 3ml neb HHN SCH ×6 (03:00→22:57)
[2018-06-20 04:00] VITALS: BP 143/89
[2018-06-20] MEDS: Levothyroxine 125mcg tab ORAL SCH (06:05)
[2018-06-20] MEDS: Piperacillin/Tazobactam 3.375 GM in D5W 110 ML IVPB SCH ×3 (06:05→22:39)
[2018-06-20 07:22] LABS: HEMATOCRIT 41.8 % (37.0-47.0); HEMOGLOBIN 13.7 G/DL (12.0-16.0); MEAN CORPUSCULAR VOLUME 87 FL (80-99); PLATELET COUNT 272 K/UL (150-450); RED BLOOD COUNT 4.81 M/UL (4.20-5.40); RED CELL DISTRIBUTION WIDTH 12.9 % (11.6-14.8); WHITE BLOOD COUNT 8.9 K/UL (4.8-10.8)
[2018-06-20 07:27] LABS: ANION GAP 9 mmol/L (5-15); BLOOD UREA NITROGEN 18 mg/dL (7-18); CALCIUM 9.1 MG/DL (8.5-10.1); CARBON DIOXIDE 29 MMOL/L (21-32); CHLORIDE 104 MMOL/L (98-107); CREATININE 0.9 MG/DL (0.55-1.30); POTASSIUM 3.1 MMOL/L (3.5-5.1); SODIUM 142 MMOL/L (136-145)
[2018-06-20 08:00] VITALS: BP 101/67
--- NOTE | 2018-06-20 08:12 | General Progress Note ---
Assessment/Plan Problem List: (1) SOB (shortness of breath) ICD Codes: R06.02 - Shortness of breath SNOMED: 802972876 (2) History of chronic CHF ICD Codes: Z86.79 - Personal history of other diseases of the circulatory system SNOMED: 957086673 (3) Hypothyroidism ICD Codes: E03.9 - Hypothyroidism, unspecified SNOMED: 91293320 (4) History of hypertension ICD Codes: Z86.79 - Personal history of other diseases of the circulatory system SNOMED: 921377203 (5) COPD exacerbation ICD Codes: J44.1 - Chronic obstructive pulmonary disease with (acute) exacerbation SNOMED: 062144763 Status: stable, progressing Assessment/Plan o2 pulm tx abx ot pt diet cbc bmp am Subjective Constitutional: Reports: weakness Respiratory: Reports: shortness of breath, wheezing Allergies: Coded Allergies: No Known Allergies (Unverified , 06/16/18) All Systems: reviewed and negative except above Subjective o2nc Objective Last 24 Hour Vital Signs Date Time Temp Pulse Resp B/P (MAP) Pulse Ox O2 Delivery O2 Flow Rate FiO2 06/20/18 07:43 95 18 100 Nasal Cannula 2.0 28 06/20/18 07:36 Nasal Cannula 2.0 28 06/20/18 07:35 98 Nasal Cannula 2.0 28 06/20/18 07:33 94 18 98 Nasal Cannula 2.0 28 06/20/18 04:00 98.2 80 19 143/89 (107) 98 06/20/18 03:29 Nasal Cannula 2.0 28 06/20/18 03:29 Nasal Cannula 2.0 28 06/20/18 00:00 97.9 93 18 123/77 (92) 97 06/19/18 23:53 89 18 100 Nasal Cannula 2.0 28 06/19/18 23:43 88 18 98 Nasal Cannula 2.0 28 06/19/18 21:00 Nasal Cannula 2.0 Nasal Cannula 2.0 06/19/18 20:10 98.3 100 19 115/73 (87) 93 06/19/18 20:04 87 18 99 Nasal Cannula 2.0 28 06/19/18 20:00 90 06/19/18 20:00 98.6 101 18 129/74 (92) 93 06/19/18 19:53 87 18 97 Nasal Cannula 2.0 28 06/19/18 19:53 Nasal Cannula 2.0 28 06/19/18 19:53 97 Nasal Cannula 2.0 28 06/19/18 16:00 88 06/19/18 16:00 98.8 86 18 116/76 (89) 96 06/19/18 14:36 99.5 06/19/18 14:23 96 18 99 Nasal Cannula 1.0 24 06/19/18 14:13 88 20 97 Nasal Cannula 2.0 28 06/19/18 12:00 99.5 99 20 138/83 (101) 96 06/19/18 12:00 92 06/19/18 11:08 96 18 99 Nasal Cannula 1.0 24 06/19/18 11:01 90 20 96 Nasal Cannula 2.0 28 06/19/18 09:00 Nasal Cannula 2.0 Nasal Cannula 2.0 06/19/18 08:53 93 139/82 06/19/18 08:15 Nasal Cannula 06/19/18 08:15 Nasal Cannula 2.0 28 06/19/18 08:15 Nasal Cannula 06/19/18 08:15 96 Nasal Cannula 2.0 28 Intake and Output 06/19/18 06/20/18 19:00 07:00 Intake Total 360 ml 230.0 ml Balance 360 ml 230.0 ml Intake Oral 360 ml 120 ml IV Total 110.0 ml # Voids 2 3 Laboratory Tests 06/20/18 05:35: White Blood Count 8.9, Red Blood Count 4.81, Hemoglobin 13.7, Hematocrit 41.8, Mean Corpuscular Volume 87, Mean Corpuscular Hemoglobin 28.4, Mean Corpuscular Hemoglobin Concent 32.7, Red Cell Distribution Width 12.9, Platelet Count 272, Mean Platelet Volume 8.2, Neutrophils (%) (Auto) , Lymphocytes (%) (Auto) , Monocytes (%) (Auto) , Eosinophils (%) (Auto) , Basophils (%) (Auto) , Neutrophils % (Manual) [Pending], Lymphocytes % (Manual) [Pending], Platelet Estimate [Pending], Platelet Morphology [Pending], Sodium Level 142, Potassium Level 3.1L, Chloride Level 104, Carbon Dioxide Level 29, Anion Gap 9, Blood Urea Nitrogen 18, Creatinine 0.9, Estimat Glomerular Filtration Rate , Glucose Level 88, Calcium Level 9.1 Height (Feet): 5 Height (Inches): 5.00 Weight (Pounds): 197 General Appearance: lethargic EENT: normal ENT inspection Neck: normal alignment Cardiovascular: normal peripheral pulses, normal rate Respiratory/Chest: chest wall non-tender, decreased breath sounds Abdomen: normal bowel sounds, non tender, soft Extremities: normal inspection Edema: no edema noted Arm (L), no edema noted Arm (R), no edema noted Leg (L), no edema noted Leg (R), no edema noted Pedal (L), no edema noted Pedal (R), no edema noted Generalized Neurologic: responsive, motor weakness Skin: normal pigmentation, warm/dry Johnny Watson DO Jun 20, 2018 08:12
[2018-06-20] MEDS ORDERED: Solu-MEDROL 40mg Inj IVP SCH ×2 (09:00→11:00)
[2018-06-20] MEDS: Theophylline ER 100mg ORAL SCH ×2 (09:05→20:08)
[2018-06-20] MEDS: Heparin 5000 units/ml inj SUBQ SCH ×2 (09:07→20:08)
--- NOTE | 2018-06-20 09:08 | Pulmonology Progress Note ---
Assessment/Plan Assessment/Plan ASSESSMENT COPD exacerbation Hypertension Hypothyroidism Diabetes mellitus Hypokalemia PLAN OF CARE supplemental O2 to keep pulse oximetry above 90%. pulmonary toilet with HHN atc and prn and CPT IV steroids with gradual tapering down. sputum cx if able empiric abx initial CXR -no acute cardiopulmonary pathology trial of theophylline Antitussive prn fup with CXR DVT prophylaxis BP management with CCB DVT prophylaxis BS management - Januvia PT/OT OOB as tolerated supportive care monitor renal parameters , lytes, correct , lytes prn/potassium today, TFT stable, continue current dose of Synthroid case discussed and evaluated by supervising physician Subjective Allergies: Coded Allergies: No Known Allergies (Unverified , 06/16/18) Subjective afebrile, no leucocytosis, still SOB, cough with productive phlegm expectiration yellow color no hemoptysis no CP K-3.1 today Objective Last 24 Hour Vital Signs Date Time Temp Pulse Resp B/P (MAP) Pulse Ox O2 Delivery O2 Flow Rate FiO2 06/20/18 08:00 98.0 108 18 101/67 (78) 97 06/20/18 07:43 95 18 100 Nasal Cannula 2.0 28 06/20/18 07:36 Nasal Cannula 2.0 28 06/20/18 07:35 98 Nasal Cannula 2.0 28 06/20/18 07:33 94 18 98 Nasal Cannula 2.0 28 06/20/18 04:00 98.2 80 19 143/89 (107) 98 06/20/18 03:29 Nasal Cannula 2.0 28 06/20/18 03:29 Nasal Cannula 2.0 28 06/20/18 00:00 97.9 93 18 123/77 (92) 97 06/19/18 23:53 89 18 100 Nasal Cannula 2.0 28 06/19/18 23:43 88 18 98 Nasal Cannula 2.0 28 06/19/18 21:00 Nasal Cannula 2.0 Nasal Cannula 2.0 06/19/18 20:10 98.3 100 19 115/73 (87) 93 06/19/18 20:04 87 18 99 Nasal Cannula 2.0 28 06/19/18 20:00 90 06/19/18 20:00 98.6 101 18 129/74 (92) 93 06/19/18 19:53 87 18 97 Nasal Cannula 2.0 28 06/19/18 19:53 Nasal Cannula 2.0 28 06/19/18 19:53 97 Nasal Cannula 2.0 28 06/19/18 16:00 88 06/19/18 16:00 98.8 86 18 116/76 (89) 96 06/19/18 14:36 99.5 06/19/18 14:23 96 18 99 Nasal Cannula 1.0 24 06/19/18 14:13 88 20 97 Nasal Cannula 2.0 28 06/19/18 12:00 99.5 99 20 138/83 (101) 96 06/19/18 12:00 92 06/19/18 11:08 96 18 99 Nasal Cannula 1.0 24 06/19/18 11:01 90 20 96 Nasal Cannula 2.0 28 Intake and Output 06/19/18 06/20/18 19:00 07:00 Intake Total 360 ml 230.0 ml Balance 360 ml 230.0 ml Intake Oral 360 ml 120 ml IV Total 110.0 ml # Voids 2 3 Objective General Appearance: no acute distress, awake, alert female HEENT: normocephalic, atraumatic, anicteric Respiratory/Chest: few scattered exp wheezes Cardiovascular: normal peripheral pulses, normal rate Abdomen: normal bowel sounds, soft, non tender Extremities: no edema, pedal pulses normal Neurologic/Psychiatric: no motor/sensory deficits, alert, oriented x 3, responsive Musculoskeletal: normal muscle bulk Laboratory Tests 06/20/18 05:35: White Blood Count 8.9, Red Blood Count 4.81, Hemoglobin 13.7, Hematocrit 41.8, Mean Corpuscular Volume 87, Mean Corpuscular Hemoglobin 28.4, Mean Corpuscular Hemoglobin Concent 32.7, Red Cell Distribution Width 12.9, Platelet Count 272, Mean Platelet Volume 8.2, Neutrophils (%) (Auto) , Lymphocytes (%) (Auto) , Monocytes (%) (Auto) , Eosinophils (%) (Auto) , Basophils (%) (Auto) , Neutrophils % (Manual) [Pending], Lymphocytes % (Manual) [Pending], Platelet Estimate [Pending], Platelet Morphology [Pending], Sodium Level 142, Potassium Level 3.1L, Chloride Level 104, Carbon Dioxide Level 29, Anion Gap 9, Blood Urea Nitrogen 18, Creatinine 0.9, Estimat Glomerular Filtration Rate , Glucose Level 88, Calcium Level 9.1 Current Medications Medications (Trade) Dose Ordered Sig/Kathryn Route PRN Reason Start Time Stop Time Status Last Admin Dose Admin Acetaminophen (Tylenol) 650 mg Q6H PRN ORAL Mild Pain/Temp > 100.5 06/19/18 20:39 07/17/18 20:38 Albuterol/ Ipratropium (Albuterol/ Ipratropium) 3 ml Q4H PRN HHN dyspnea 06/19/18 20:40 06/24/18 20:39 Albuterol/ Ipratropium (Albuterol/ Ipratropium) 3 ml Q4HRT HHN 06/19/18 23:00 06/22/18 10:59 06/20/18 07:33 Amlodipine Besylate (Norvasc) 10 mg DAILY ORAL 06/20/18 09:00 07/17/18 08:59 Dextrose (Dextrose 50%) 25 ml Q30M PRN IV Hypoglycemia 06/19/18 20:45 07/16/18 13:44 Dextrose (Dextrose 50%) 50 ml Q30M PRN IV Hypoglycemia 06/19/18 20:45 07/16/18 13:44 Heparin Sodium (Porcine) (Heparin 5000 units/ml) 5,000 units EVERY 12 HOURS SUBQ 06/19/18 21:00 07/16/18 20:59 06/19/18 22:10 Levothyroxine Sodium (Synthroid) 125 mcg DAILY@0630 ORAL 06/20/18 06:30 07/17/18 06:29 06/20/18 06:05 Lorazepam (Ativan 2mg/ml 1ml) 0.5 mg Q4H PRN IV For Anxiety 06/19/18 20:40 06/23/18 20:39 Methylprednisolone Sodium Succinate (Solu-MEDROL) 40 mg DAILY IVP 06/20/18 09:00 07/16/18 17:59 Morphine Sulfate (Morphine Sulfate) 2 mg Q4H PRN IVP severe pain 7-10 06/19/18 20:41 06/23/18 20:40 06/20/18 00:19 Nitroglycerin (Ntg) 0.4 mg Q5M X 3 DOSES PRN SL Prn Chest Pain 06/19/18 20:45 07/16/18 13:44 Ondansetron HCl (Zofran) 4 mg Q6H PRN IVP Nausea & Vomiting 06/19/18 20:41 07/19/18 20:40 Piperacillin Sod/ Tazobactam Sod 3.375 gm/Dextrose 110 ml @ 27.5 mls/hr Q8H IVPB 06/19/18 23:00 06/24/18 22:59 06/20/18 06:05 Promethazine HCl/ Codeine (Phenergan with Codeine) 5 ml Q6H PRN ORAL cough 06/19/18 20:41 07/19/18 20:40 Sitagliptin Phosphate (Januvia) 50 mg QHS ORAL 06/19/18 21:00 07/16/18 20:59 06/19/18 22:09 Temazepam (Restoril) 15 mg HSPRN PRN ORAL Insomnia 06/19/18 20:41 06/26/18 20:40 06/19/18 22:10 Theophylline (Juan M-Dur) 100 mg EVERY 12 HOURS ORAL 06/19/18 21:00 07/16/18 20:59 06/19/18 22:10 Emmie Borrego NP Jun 20, 2018 09:08
[2018-06-20 12:00] VITALS: BP 137/67
[2018-06-20 16:00] VITALS: BP 149/96
[2018-06-20 20:00] VITALS: BP 148/78
[2018-06-20] MEDS: sitaGLIPtin 50mg tab ORAL SCH (20:09)
[2018-06-21] VITALS: BP 140/64
[2018-06-21] MEDS: Albuterol/Ipratropium 3ml neb HHN SCH ×4 (03:17→14:57)
[2018-06-21 04:00] VITALS: BP 158/84
[2018-06-21] MEDS: Piperacillin/Tazobactam 3.375 GM in D5W 110 ML IVPB SCH (06:25)
[2018-06-21] MEDS: Levothyroxine 125mcg tab ORAL SCH (06:25)
[2018-06-21 07:33] LABS: BASOPHILS % (AUTO) 0.3 % (0.0-2.0); EOSINOPHILS % (AUTO) 0.3 % (0.0-3.0); HEMATOCRIT 37.8 % (37.0-47.0); HEMOGLOBIN 12.6 G/DL (12.0-16.0); LYMPHOCYTES % (AUTO) 22.4 % (20.0-45.0); MEAN CORPUSCULAR VOLUME 86 FL (80-99); MONOCYTES % (AUTO) 8.5 % (1.0-10.0); NEUTROPHILS % (AUTO) 68.6 % (45.0-75.0); PLATELET COUNT 200 K/UL (150-450); RED BLOOD COUNT 4.41 M/UL (4.20-5.40); RED CELL DISTRIBUTION WIDTH 12.6 % (11.6-14.8); WHITE BLOOD COUNT 6.2 K/UL (4.8-10.8)
[2018-06-21 07:42] LABS: ANION GAP 6 mmol/L (5-15); BLOOD UREA NITROGEN 18 mg/dL (7-18); CALCIUM 8.6 MG/DL (8.5-10.1); CARBON DIOXIDE 28 MMOL/L (21-32); CHLORIDE 106 MMOL/L (98-107); CREATININE 0.8 MG/DL (0.55-1.30); POTASSIUM 3.2 MMOL/L (3.5-5.1); SODIUM 140 MMOL/L (136-145)
[2018-06-21 08:00] VITALS: BP 121/66
[2018-06-21] MEDS ORDERED: Solu-MEDROL 40mg Inj IVP SCH (09:00)
[2018-06-21] MEDS: Heparin 5000 units/ml inj SUBQ SCH (10:55)
[2018-06-21] MEDS: Theophylline ER 100mg ORAL SCH (11:00)
[2018-06-21] MEDS: Morphine Sulfate 2mg/ml Inj IVP PRN (11:01)
[2018-06-21 12:00] VITALS: BP 150/97
--- NOTE | 2018-06-21 12:06 | Diagnostic Imaging Report ---
Indication: Shortness of breath Technique: One view of the chest Comparison: 06/08/2018 Findings: Interim development of moderate-sized bilateral pleural effusions. The heart is upper limits normal in size. The aorta is tortuous ectatic and calcified. Surgical clips are again demonstrated in the neck Impression: Bilateral pleural effusions, developing since 06/08/2018
--- NOTE | 2018-06-21 12:59 | General Progress Note ---
Assessment/Plan Problem List: (1) SOB (shortness of breath) ICD Codes: R06.02 - Shortness of breath SNOMED: 949892721 (2) History of chronic CHF ICD Codes: Z86.79 - Personal history of other diseases of the circulatory system SNOMED: 058620816 (3) Hypothyroidism ICD Codes: E03.9 - Hypothyroidism, unspecified SNOMED: 99700694 (4) History of hypertension ICD Codes: Z86.79 - Personal history of other diseases of the circulatory system SNOMED: 004236455 (5) COPD exacerbation ICD Codes: J44.1 - Chronic obstructive pulmonary disease with (acute) exacerbation SNOMED: 032450473 Status: stable, progressing Assessment/Plan o2 pulm tx abx ot pt diet cbc bmp am dc plan snf Subjective Constitutional: Reports: weakness Respiratory: Reports: shortness of breath Allergies: Coded Allergies: No Known Allergies (Unverified , 06/16/18) All Systems: reviewed and negative except above Subjective o2nc Objective Last 24 Hour Vital Signs Date Time Temp Pulse Resp B/P (MAP) Pulse Ox O2 Delivery O2 Flow Rate FiO2 06/21/18 12:00 98.2 91 21 150/97 (114) 99 06/21/18 11:33 85 18 99 Nasal Cannula 2.0 06/21/18 11:31 96.3 06/21/18 11:26 84 18 96 Nasal Cannula 2.0 06/21/18 10:52 95 125/66 06/21/18 09:00 Nasal Cannula 2.0 Nasal Cannula 2.0 06/21/18 08:00 97.9 95 15 121/66 (84) 99 06/21/18 07:40 Nasal Cannula 06/21/18 07:40 Nasal Cannula 06/21/18 07:40 97 Nasal Cannula 2.0 06/21/18 07:40 Nasal Cannula 2.0 06/21/18 04:00 96.3 83 16 158/84 (108) 96 06/21/18 03:27 75 18 99 Nasal Cannula 2.0 06/21/18 03:17 70 18 97 Nasal Cannula 2.0 28 06/21/18 00:00 97.3 87 17 140/64 (89) 96 87 06/20/18 23:07 84 18 97 Nasal Cannula 2.0 28 12/2/18 22:57 84 18 95 Nasal Cannula 2.0 28 06/20/18 21:00 Nasal Cannula 2.0 Nasal Cannula 2.0 06/20/18 20:00 97.2 92 16 148/78 (101) 93 06/20/18 19:42 91 18 98 Nasal Cannula 2.0 28 06/20/18 19:32 95 Nasal Cannula 2.0 28 06/20/18 19:32 88 18 95 Nasal Cannula 2.0 28 06/20/18 19:32 Nasal Cannula 2.0 28 06/20/18 16:00 98.1 110 20 149/96 (113) 95 06/20/18 14:25 87 18 99 Nasal Cannula 2.0 28 06/20/18 14:14 81 18 97 Nasal Cannula 2.0 28 Intake and Output 06/20/18 06/21/18 19:00 07:00 Intake Total 377.5 ml 27.5 ml Balance 377.5 ml 27.5 ml Intake Oral 240 ml IV Total 137.5 ml 27.5 ml # Voids 1 3 # Bowel Movements 1 Laboratory Tests 06/21/18 06:50: White Blood Count 6.2, Red Blood Count 4.41, Hemoglobin 12.6, Hematocrit 37.8, Mean Corpuscular Volume 86, Mean Corpuscular Hemoglobin 28.7, Mean Corpuscular Hemoglobin Concent 33.4, Red Cell Distribution Width 12.6, Platelet Count 200, Mean Platelet Volume 8.3, Neutrophils (%) (Auto) 68.6, Lymphocytes (%) (Auto) 22.4, Monocytes (%) (Auto) 8.5, Eosinophils (%) (Auto) 0.3, Basophils (%) (Auto ) 0.3, Sodium Level 140, Potassium Level 3.2L, Chloride Level 106, Carbon Dioxide Level 28, Anion Gap 6, Blood Urea Nitrogen 18, Creatinine 0.8, Estimat Glomerular Filtration Rate , Glucose Level 84, Calcium Level 8.6 Height (Feet): 5 Height (Inches): 5.00 Weight (Pounds): 197 General Appearance: lethargic EENT: normal ENT inspection Neck: normal alignment Cardiovascular: normal peripheral pulses, normal rate, regular rhythm Respiratory/Chest: chest wall non-tender, decreased breath sounds Abdomen: normal bowel sounds, non tender, soft Extremities: normal inspection Edema: no edema noted Arm (L), no edema noted Arm (R), no edema noted Leg (L), no edema noted Leg (R), no edema noted Pedal (L), no edema noted Pedal (R), no edema noted Generalized Neurologic: responsive, motor weakness Skin: normal pigmentation, warm/dry Johnny Watson DO Jun 21, 2018 12:59
--- NOTE | 2018-06-21 14:38 | Pulmonology Progress Note ---
Assessment/Plan Problems: (1) COPD exacerbation (2) Hypothyroidism (3) History of chronic CHF (4) History of hypertension Assessment/Plan doing better respiratory treatment iv steroids, taper fast, iv abx, no sputum yet check sputum continue Synthyroid dvt prophylaxis Subjective ROS Limited/Unobtainable: No Constitutional: Reports: no symptoms HEENT: Repors: no symptoms Allergies: Coded Allergies: No Known Allergies (Unverified , 06/16/18) Objective Last 24 Hour Vital Signs Date Time Temp Pulse Resp B/P (MAP) Pulse Ox O2 Delivery O2 Flow Rate FiO2 06/21/18 12:00 98.2 91 21 150/97 (114) 99 06/21/18 11:33 85 18 99 Nasal Cannula 2.0 28 06/21/18 11:31 96.3 06/21/18 11:26 84 18 96 Nasal Cannula 2.0 06/21/18 10:52 95 125/66 06/21/18 09:00 Nasal Cannula 2.0 Nasal Cannula 2.0 06/21/18 08:00 97.9 95 15 121/66 (84) 99 06/21/18 07:40 Nasal Cannula 06/21/18 07:40 Nasal Cannula 06/21/18 07:40 97 Nasal Cannula 2.0 06/21/18 07:40 Nasal Cannula 2.0 28 06/21/18 04:00 96.3 83 16 158/84 (108) 96 06/21/18 03:27 75 18 99 Nasal Cannula 2.0 06/21/18 03:17 70 18 97 Nasal Cannula 2.0 06/21/18 00:00 97.3 87 17 140/64 (89) 96 87 06/20/18 23:07 84 18 97 Nasal Cannula 2.0 06/20/18 22:57 84 18 95 Nasal Cannula 2.0 06/20/18 21:00 Nasal Cannula 2.0 Nasal Cannula 2.0 06/20/18 20:00 97.2 92 16 148/78 (101) 93 06/20/18 19:42 91 18 98 Nasal Cannula 2.0 06/20/18 19:32 95 Nasal Cannula 2.0 06/20/18 19:32 88 18 95 Nasal Cannula 2.0 06/20/18 19:32 Nasal Cannula 2.0 06/20/18 16:00 98.1 110 20 149/96 (113) 95 Intake and Output 06/20/18 06/21/18 19:00 07:00 Intake Total 377.5 ml 27.5 ml Balance 377.5 ml 27.5 ml Intake Oral 240 ml IV Total 137.5 ml 27.5 ml # Voids 1 3 # Bowel Movements 1 Objective General Appearance: WD/WN HEENT: normocephalic, atraumatic Respiratory/Chest: chest wall non-tender, lungs clear Breasts: no masses Cardiovascular: normal peripheral pulses Abdomen: normal bowel sounds, soft, non tender, no organomegaly Neurologic/Psychiatric: signal maintainer II-XII grossly normal Lymphatic: no neck adenopathy Microbiology Date/Time Source Procedure Growth Status 06/20/18 12:16 Sputum Expectorated Gram Stain - Final Resulted 06/20/18 12:16 Sputum Expectorated Sputum Culture Pending Resulted Laboratory Tests 06/21/18 06:50: White Blood Count 6.2, Red Blood Count 4.41, Hemoglobin 12.6, Hematocrit 37.8, Mean Corpuscular Volume 86, Mean Corpuscular Hemoglobin 28.7, Mean Corpuscular Hemoglobin Concent 33.4, Red Cell Distribution Width 12.6, Platelet Count 200, Mean Platelet Volume 8.3, Neutrophils (%) (Auto) 68.6, Lymphocytes (%) (Auto) 22.4, Monocytes (%) (Auto) 8.5, Eosinophils (%) (Auto) 0.3, Basophils (%) (Auto ) 0.3, Sodium Level 140, Potassium Level 3.2L, Chloride Level 106, Carbon Dioxide Level 28, Anion Gap 6, Blood Urea Nitrogen 18, Creatinine 0.8, Estimat Glomerular Filtration Rate , Glucose Level 84, Calcium Level 8.6 Current Medications Medications (Trade) Dose Ordered Sig/Kathryn Route PRN Reason Start Time Stop Time Status Last Admin Dose Admin Acetaminophen (Tylenol) 650 mg Q6H PRN ORAL Mild Pain/Temp > 100.5 06/19/18 20:39 07/17/18 20:38 Albuterol/ Ipratropium (Albuterol/ Ipratropium) 3 ml Q4H PRN HHN dyspnea 06/19/18 20:40 06/24/18 20:39 Albuterol/ Ipratropium (Albuterol/ Ipratropium) 3 ml Q4HRT HHN 06/19/18 23:00 06/22/18 10:59 06/21/18 11:26 Amlodipine Besylate (Norvasc) 10 mg DAILY ORAL 06/20/18 09:00 07/17/18 08:59 06/21/18 10:52 Dextrose (Dextrose 50%) 25 ml Q30M PRN IV Hypoglycemia 06/19/18 20:45 07/16/18 13:44 Dextrose (Dextrose 50%) 50 ml Q30M PRN IV Hypoglycemia 06/19/18 20:45 07/16/18 13:44 Gabapentin (Neurontin) 600 mg THREE TIMES A DAY ORAL 06/21/18 09:00 07/21/18 08:59 06/21/18 13:06 Heparin Sodium (Porcine) (Heparin 5000 units/ml) 5,000 units EVERY 12 HOURS SUBQ 06/19/18 21:00 07/16/18 20:59 06/21/18 10:55 Levothyroxine Sodium (Synthroid) 125 mcg DAILY@0630 ORAL 06/20/18 06:30 07/17/18 06:29 06/21/18 06:25 Lorazepam (Ativan 2mg/ml 1ml) 0.5 mg Q4H PRN IV For Anxiety 06/19/18 20:40 06/23/18 20:39 Methylprednisolone Sodium Succinate (Solu-MEDROL) 30 mg DAILY IVP 06/21/18 09:00 07/21/18 08:59 06/21/18 10:54 Morphine Sulfate (Morphine Sulfate) 2 mg Q4H PRN IVP severe pain 7-10 06/19/18 20:41 06/23/18 20:40 06/21/18 11:01 Nitroglycerin (Ntg) 0.4 mg Q5M X 3 DOSES PRN SL Prn Chest Pain 06/19/18 20:45 07/16/18 13:44 Ondansetron HCl (Zofran) 4 mg Q6H PRN IVP Nausea & Vomiting 06/19/18 20:41 07/19/18 20:40 Piperacillin Sod/ Tazobactam Sod 3.375 gm/Dextrose 110 ml @ 27.5 mls/hr Q8H IVPB 06/19/18 23:00 06/24/18 22:59 06/21/18 06:25 Potassium Chloride 100 ml @ 100 mls/hr Q1H IVPB 06/21/18 11:30 06/21/18 15:29 06/21/18 14:28 Promethazine HCl/ Codeine (Phenergan with Codeine) 5 ml Q6H PRN ORAL cough 06/19/18 20:41 07/19/18 20:40 06/20/18 11:58 Sitagliptin Phosphate (Januvia) 50 mg QHS ORAL 06/19/18 21:00 07/16/18 20:59 06/20/18 20:09 Temazepam (Restoril) 15 mg HSPRN PRN ORAL Insomnia 06/19/18 20:41 06/26/18 20:40 06/21/18 10:53 Theophylline (Juan M-Dur) 100 mg EVERY 12 HOURS ORAL 06/19/18 21:00 07/16/18 20:59 06/21/18 11:00 Carrie Scales MD Jun 21, 2018 14:38
[2018-06-21 16:00] VITALS: BP 133/78
--- NOTE | 2018-06-21 16:30 | Consultation ---
DATE OF CONSULTATION: 06/21/2018 CONSULTING PHYSICIAN: Lisa Velasquez M.D. HISTORY OF PRESENT ILLNESS: This is a 77-year-old female with COPD. The patient continues to have some anxiety, depression, worsened by stress from her medical illness. MEDICAL HISTORY: COPD. ALLERGIES: No known drug allergies. PSYCHOTROPIC MEDICATIONS: anxiety and agitation. SUBSTANCE ABUSE HISTORY: Denies. FAMILY PSYCHIATRIC HISTORY: Denies. PAIN ASSESSMENT: . DEVELOPMENTAL PROBLEMS: Denies. SOCIAL HISTORY: Lives in a facility. Financially supported by [employer] and Medicare. PSYCHIATRIC HISTORY: . MENTAL STATUS EXAMINATION: This is a 77-year-old female. Appearance is disheveled. Attitude, irritable and agitated. Affect, guarded and restricted. Intellect poor. Mood, depressed and anxious. Motor activity, psychomotor agitation. Attention span is poor. Orientation x2. Speech is pressured. Thought process, disorganized and illogical. Thought content, auditory hallucinations and paranoid delusions. Insight and judgment is poor. DIAGNOSES: 1. Major depressive disorder, recurrent, without psychotic features. 2. Medical, COPD. 3. Psychosocial stressors, financial stressors. PLAN: Plan is to treat her with mg three times a day, Ativan 2.5 mg every four hours severe anxiety and agitation. Provided 20 minutes of cognitive behavioral therapy to help identify her automatic negative thoughts and to help with negative thoughts to more positive thoughts to reduce depression, anxiety, and suicidality. . Lisa Velasquez M.D. DR: TAYLOR JOB#: [id number] CC:
--- NOTE | 2018-06-24 10:34 | Discharge Summary ---
Discharge Summary Discharge Summary _ DATE OF ADMISSION: 06/16/2018 DATE OF DISCHARGE: 06/21/2018 REASON FOR ADMISSION: 77 years old female with past medical history of hypertension, diabetes mellitus, chronic congestive heart failure, presented to emergency department , complaining of shortness of breath for 2 days. No fever, minimal nonproductive cough. No chest pain. No leg pain or swelling. No recent traveling. Chest x-ray did not show infiltrates. Patient was evaluated in emergency room and admitted for for further management with diagnosis of COPD exacerbation CONSULTANTS: pulmonary Dr. Scales psychiatrist Dr. Velasquez [facility] COURSE: Patient admitted. Supplemental oxygen provided to keep pulse oximetry above 90%. Pulmonary toilet provided with nebulizing therapy around the clock and as needed. Patient was started on intravenous steroids with gradual tapering down. Sputum culture was negative.. Patient was started on empiric antibiotic. CXR revealed no acute cardiopulmonary pathology. Trial of theophylline started . Antitussive provided as needed. DVT prophylaxis provided. Volumes were closely monitored. Congestive heart failure did not appear to be decompensated. Blood pressure was managed with calcium channel cande and remained stable. Blood sugar was managed with Januvia. Patient was out of bed with help of physical and occupational therapists. Renal parameters and electrolytes were closely monitored. Potassium corrected. Nephrotoxins were avoided. T thyroid function test was stable, and current dose of Synthroid was continued. Supportive care provided. Psychiatrist seen and evaluated patient for recurrent major depressive disorder. Antidepressive medication regimen was optimized. Reality orientation and supportive therapy provided. Patient clinically improved and was ready for discharge back to group home facility for continuation of care FINAL DIAGNOSES: COPD exacerbation Hypertension History of chronic congestive heart failure Hypothyroidism Diabetes mellitus Hypokalemia Major depressive disorder, recurrent without psychotic features DISCHARGE MEDICATIONS: See Medication Reconciliation list. DISCHARGE INSTRUCTIONS: Patient was discharged to the group home facility. Follow up with medical doctor at the facility. Emmie Borrego NP Jun 24, 2018 10:34
== END 2018-06-21 18:00 | DRG 191 ==
LOC: EMR 11:48 → 2E 12:40 → EDBEDREQ 16:57 → 4E 06-19 20:01
DX: J44.1 Chronic obstructive pulmonary disease with (acute) exacerbation (principal); F33.9 Major depressive disorder, recurrent, unspecified; E87.6 Hypokalemia; E11.9 Type 2 diabetes mellitus without complications; I11.0 Hypertensive heart disease with heart failure; I50.9 Heart failure, unspecified; E89.0 Postprocedural hypothyroidism
CPT/HCPCS: 36415; 71045; 80048; 80053; 82962; 83735; 84439; 84443; 84481; 85007; 85025; 87070; 87205; 93005; 94640; 94664; 94760; 96374; 99285; J7620; J8499

== ENCOUNTER 2018-07-16 06:51 | Inpatient (IN) | payer MEDICARE, MEDICAID ==
[~2018-07-16] VITALS: Ht 149.9 cm; Wt 79.8 kg
[~2018-07-16 06:51] MED LIST: BIOTIN10 MG PO; CRESTOR10 M2 ORAL; FISH OIL CAP1000 MG ORAL; FUROSEMIDE20 M1 ORAL; FUROSEMIDE40 MG ORAL; GABAPENTIN800 MG ORAL; IBUPROFEN600 MG ORAL; ISORDIL40 MG ORAL; JANUVIA25 MG ORAL; MULTIVITAMINS1 EAC2 ORAL; NORVASC10 MG ORAL; OMEPRAZOLE40 M1 ORAL; POTASSIUM CHLOR8 ME2 PO; SYNTHROID100 MCG ORAL; SYNTHROID137 MCG ORAL; VENTOLIN HFA18 GM INH; VITAMIN D400 INTLU ORAL
--- NOTE | 2018-07-16 07:14 | NUR ---
ED Nurse Note: Pt came in from home due to difficulty breathing since Thursday07/13/18. Pt was in the hospital 06/16/18 and ruled out COPD and Bronchitis according to daughter. Pt SAT 94% on 4L oxygen NC, appears to be using accessory muscles to breathe. ERMD at bedside to assess pt. Monitor attached. Will cont to monitor.
[2018-07-16] MEDS ORDERED: Sodium Chloride 500ML 500 ML IV ONE (07:15)
[2018-07-16] MEDS ORDERED: Solu-MEDROL 125mg Inj IVP ONE (07:15)
[2018-07-16 07:21] VITALS: BP 150/85
--- NOTE | 2018-07-16 07:29 | NUR ---
ED Nurse Note: RT at bedside for breathing tx.
[2018-07-16] MEDS: Albuterol ud Inhalation HHN SCH ×3 (07:33→08:06)
[2018-07-16] MEDS: Ipratropium 0.02% Inh Soln 2.5ml UD HHN SCH ×3 (07:33→08:06)
--- NOTE | 2018-07-16 07:40 | NUR ---
ED Nurse Note: Blood drawn and sent to lab. X-ray at bedside for imaging.
[2018-07-16 08:07] LABS: BASOPHILS % (AUTO) 1.2 % (0.0-2.0); EOSINOPHILS % (AUTO) 2.8 % (0.0-3.0); HEMATOCRIT 39.3 % (37.0-47.0); HEMOGLOBIN 12.5 G/DL (12.0-16.0); LYMPHOCYTES % (AUTO) 10.2 % (20.0-45.0); MEAN CORPUSCULAR VOLUME 90 FL (80-99); MONOCYTES % (AUTO) 9.1 % (1.0-10.0); NEUTROPHILS % (AUTO) 76.7 % (45.0-75.0); PLATELET COUNT 197 K/UL (150-450); RED BLOOD COUNT 4.35 M/UL (4.20-5.40); RED CELL DISTRIBUTION WIDTH 13.3 % (11.6-14.8); WHITE BLOOD COUNT 5.7 K/UL (4.8-10.8)
--- NOTE | 2018-07-16 08:16 | Emergency Room Report ---
History of Present Illness General Chief Complaint: Dyspnea/Respdistress Source: Patient, Family Member Present Illness HPI 77-year-old female presents ED for evaluation. Patient brought in by daughter for shortness of breath. States that patient has been having difficulty breathing for the last 3 days. History of asthma. Was admitted here in June for COPD exacerbation. Was subsequent discharged to [facility] facility. Patient was therefore one week and discharged home. Daughter states that patient was supposed to receive home oxygen but it came late. In the meanwhile symptoms started getting worse. Denies chest pain. Denies fevers or chills. Denies cough. No other aggravating relieving factors. Denies any other associated symptoms Allergies: Coded Allergies: No Known Allergies (Unverified , 06/16/18) Patient History Past Medical History: DM, HTN, asthma, COPD Past Surgical History: none Pertinent Family History: none Social History: Denies: smoking, alcohol use, drug use Last Menstrual Period: GHASSAN Now: No Immunizations: UTD Reviewed Nursing Documentation: PMH: Agreed; PSxH: Agreed Nursing Documentation-PMH Hx Cardiac Problems: Yes - THYROID, high cholest Hx Hypertension: Yes Hx Asthma: Yes Hx COPD: Yes - bronchitis. Hx Diabetes: Yes Hx Cancer: Yes - diverticulitis. Hx Gastrointestinal Problems: No Review of Systems All Other Systems: negative except mentioned in HPI Physical Exam Vital Signs Date Time Temp Pulse Resp B/P (MAP) Pulse Ox O2 Delivery O2 Flow Rate FiO2 07/16/18 07:08 98.1 54 20 161/81 99 Room Air 07/16/18 07:30 5.0 40 Sp02 EP Interpretation: reviewed, normal General Appearance: alert, GCS 15, non-toxic, mild distress Head: normocephalic, atraumatic Eyes: bilateral eye normal inspection, bilateral eye PERRL ENT: hearing grossly normal, normal pharynx, no angioedema, normal voice Neck: full range of motion, supple/symm/no masses Respiratory: chest non-tender, decreased breath sounds, accessory muscle use, speaking full sentences, wheezing Cardiovascular #1: regular rate, rhythm, no edema Cardiovascular #2: 2+ carotid (R), 2+ carotid (L), 2+ radial (R), 2+ radial (L) , 2+ dorsalis pedis (R), 2+ dorsalis pedis (L) Gastrointestinal: normal bowel sounds, non tender, soft, non-distended, no guarding, no rebound Rectal: deferred Genitourinary: normal inspection, no CVA tenderness Musculoskeletal: back normal, gait/station normal, normal range of motion, non- tender Neurologic: alert, oriented x3, responsive, motor strength/tone normal, sensory intact, speech normal Psychiatric: judgement/insight normal, memory normal, mood/affect normal, no suicidal/homicidal ideation Reflexes: 3+ bicep (R), 3+ bicep (L), 3+ tricep (R), 3+ tricep (L), 3+ knee (R) , 3+ knee (L) Skin: normal color, no rash, warm/dry, well hydrated Lymphatic: no adenopathy Procedures Critical Care Time Critical Care Time i. I feel this is a highly complex case requiring extensive working including EKG/Rhythm strip, Xray/CT/US, Blood/urine lab work, repeat exams while in ED, and administration of strong opiates/narcotics for pain control, admission to hospital or close patient follow up. Total time: 40 min bedside evaluation and treatment excludes procedures (EKG). Reason for critical care: respiratory distress, hypoxia Possible complications: hypotension, hypertension, VA, shock, arrhythmias, metabolic acidosis, end organ damage, respiratory failure. Interventions: Labs, IV fluids, EKG, chest x-ray, nebs, Solu-Medrol, antibiotics Course: Patient presenting with respiratory distress. Retractions. History of COPD. Recently discharged. Given breathing treatments, Solu-Medrol. Chest x- ray shows some cardiomegaly with minimal interstitial congestion. EKGnormal sinus rhythm no acute ischemic changes interpreted by me. Improved after treatment Consultations: nursing staff, EMS, family Performed by: Dr Perkins Tolerated well condition = serious j. because of unstable vital signs this patient had a condition that could potentially threaten life or limb. I feel this is a critical patient who required my full attention while patient was considered critical. Total Critical Care Time excluding procedures was greater than 35 minutes Medical Decision Making Diagnostic Impression: Primary Impression: COPD exacerbation ER Course Hospital Course 77-year-old F presenting to ED with SOB. h/o COPD Differential diagnoses include: Pneumonia, CHF exacerbation, pneumothorax, fluid overload Clinical course Patient placed on stretcher. On bus monitor with stable vitals. After initial history and physical, I ordered nebulizer treatments. I ordered labs, IV fluids, EKG, chest x-ray, blood cultures, UA. Labs - no leukocytosis noted, hemoglobin/hematocrit stable, electrolytes okay, lactate okay, troponins 0.208 CXR - cardiomegaly, interstitial congestion EKG NSR, no acute ischemic changes interpreted by me given aspirin. given abx. breathing improved Case discussed with Dr. Jorgensen and he agreed to the patient to his service for further care and support I feel this is a highly complex case requiring extensive working including EKG/ Rhythm strip, Xray/CT/US, Blood/urine lab work, repeat exams while in ED, and administration of strong opiates/narcotics for pain control, admission to hospital or close patient follow up. Diagnosis - COPD exacerbation Patient admitted to telemetry in serious condition Labs Test 07/16/18 07:35 White Blood Count 5.7 K/UL (4.8-10.8) Red Blood Count 4.35 M/UL (4.20-5.40) Hemoglobin 12.5 G/DL (12.0-16.0) Hematocrit 39.3 % (37.0-47.0) Mean Corpuscular Volume 90 FL (80-99) Mean Corpuscular Hemoglobin 28.8 PG (27.0-31.0) Mean Corpuscular Hemoglobin Concent 31.9 G/DL (32.0-36.0) Red Cell Distribution Width 13.3 % (11.6-14.8) Platelet Count 197 K/UL (150-450) Mean Platelet Volume 8.7 FL (6.5-10.1) Neutrophils (%) (Auto) 76.7 % (45.0-75.0) Lymphocytes (%) (Auto) 10.2 % (20.0-45.0) Monocytes (%) (Auto) 9.1 % (1.0-10.0) Eosinophils (%) (Auto) 2.8 % (0.0-3.0) Basophils (%) (Auto) 1.2 % (0.0-2.0) Sodium Level 140 MMOL/L (136-145) Potassium Level 3.2 MMOL/L (3.5-5.1) Chloride Level 101 MMOL/L (98-107) Carbon Dioxide Level 32 MMOL/L (21-32) Anion Gap 7 mmol/L (5-15) Blood Urea Nitrogen 11 mg/dL (7-18) Creatinine 0.7 MG/DL (0.55-1.30) Estimat Glomerular Filtration Rate mL/min (>60) Glucose Level 149 MG/DL (74-106) Lactic Acid Level 1.30 mmol/L (0.4-2.0) Calcium Level 9.6 MG/DL (8.5-10.1) Total Bilirubin 0.3 MG/DL (0.2-1.0) Aspartate Amino Transf (AST/SGOT) 29 U/L (15-37) Alanine Aminotransferase (ALT/SGPT) 25 U/L (12-78) Alkaline Phosphatase 70 U/L (46-116) Total Creatine Kinase 106 U/L (26-308) Creatine Kinase MB 4.8 NG/ML (0.0-3.6) Creatine Kinase MB Relative Index 4.5 Troponin I 0.208 ng/mL (0.000-0.056) Pro-B-Type Natriuretic Peptide 66 pg/mL (0-125) Total Protein 7.7 G/DL (6.4-8.2) Albumin 3.8 G/DL (3.4-5.0) Globulin 3.9 g/dL Albumin/Globulin Ratio 1.0 (1.0-2.7) EKG Diagnostic Results Rate: normal Rhythm: NSR ST Segments: no acute changes ASA given to the pt in ED: No Rhythm Strip Diag. Results EP Interpretation: yes Rhythm: NSR, no PVC's, no ectopy Chest X-Ray Diagnostic Results Chest X-Ray Diagnostic Results : Chest X-Ray Ordered: Yes # of Views/Limited/Complete: 1 View Indication: Shortness of Breath EP Interpretation: Yes Interpretation: no consolidation, no effusion, no pneumothorax, no acute cardiopulmonary disease Impression: No acute disease Electronically Signed by: Electronically signed by Glen Perkins MD Last Vital Signs Date Time Temp Pulse Resp B/P (MAP) Pulse Ox O2 Delivery O2 Flow Rate FiO2 07/16/18 07:53 97 23 Nasal Cannula 5.0 40 07/16/18 07:33 94 07/16/18 07:21 98.1 150/85 Status: improved Disposition: ADMITTED INPATIENT Condition: Serious Referrals: NON PHYSICIAN (PCP) Glen Perkins MD Jul 16, 2018 08:16
[2018-07-16 08:17] LABS: ANION GAP 7 mmol/L (5-15); BLOOD UREA NITROGEN 11 mg/dL (7-18); CALCIUM 9.6 MG/DL (8.5-10.1); CARBON DIOXIDE 32 MMOL/L (21-32); CHLORIDE 101 MMOL/L (98-107); CREATININE 0.7 MG/DL (0.55-1.30); POTASSIUM 3.2 MMOL/L (3.5-5.1); SODIUM 140 MMOL/L (136-145)
[2018-07-16 08:35] LABS: ALANINE AMINOTRANSFERASE 25 U/L (12-78); ALBUMIN 3.8 G/DL (3.4-5.0); ALKALINE PHOSPHATASE 70 U/L (46-116); ASPARTATE AMINO TRANSFERASE 29 U/L (15-37); BILIRUBIN,TOTAL 0.3 MG/DL (0.2-1.0); CKMB 4.8 NG/ML (0.0-3.6); CREATINE KINASE 106 U/L (26-308)
--- NOTE | 2018-07-16 09:00 | NUR ---
ED Nurse Note: Urine collected and sent to lab.
[2018-07-16 09:02] VITALS: BP 160/77
[2018-07-16 09:14] LABS: APPEARANCE,URINE CLEAR; BILIRUBIN, URINE NEGATIVE (NEGATIVE); COLOR,URINE PALE YELLOW; GLUCOSE, URINE (UA) NEGATIVE (NEGATIVE); KETONES,URINE 2+ (NEGATIVE); LEUKOCYTE ESTERASE ,URINE NEGATIVE (NEGATIVE); NITRITE,URINE NEGATIVE (NEGATIVE); PH,URINE 6.5 (4.5-8.0); PROTEIN,URINE 2+ (NEGATIVE); UROBILINOGEN,URINE NORMAL MG/DL (0.0-1.0)
--- NOTE | 2018-07-16 09:43 | NUR ---
report given to anil vazquez . patient is to be transferd to room 221-1 via acls protocol patient is awake alert oriented . family at bedside
[2018-07-16 10:00] VITALS: BP 151/82
--- NOTE | 2018-07-16 10:10 | NUR ---
NURSE NOTES: Received report from MADHAV Barron. Patient belongings at bedside, heart monitor on, HR 102, BP 155/83, T 97.9, O2 sat 94% on 2L via NC. Patient denies pain at this time. No active s/s cardiac, respiratory distress noticed at this time. Family member at bedside. Bed in lowest position, side rails up x2, call light within reach. Family member request information about advance directive. Social service made aware. Will continue to monitor.
--- NOTE | 2018-07-16 10:33 | Diagnostic Imaging Report ---
Indication: Shortness of breath Technique: One view of the chest Comparison: 06/21/2018 Findings: Previously demonstrated pleural effusions are no longer evident. Better inspiration currently. The heart is borderline enlarged. The aorta is tortuous ectatic and calcified. Surgical clips are seen in the lower neck. Impression: Borderline cardiomegaly. No acute process
--- NOTE | 2018-07-16 12:05 | NUR ---
Social Service Note SW met with patient and patient's dgt Josselin Lynch [phone] regarding advance directives. SW discussed the advance directives document and answered additional questions. Code status addressed. Patient is full code. Patient from home prior to admission. CM may need to follow up on delivery. Anticipated return home upon discharge. Will be available as needed.
--- NOTE | 2018-07-16 12:20 | NUR ---
NURSE NOTES: Received admission orders from Dr. Zacarias Jorgensen. Orders entered, noted, and carried out. Will continue to monitor patient. Addendum: 07/16/18 at 1622 by SHAHANA BLANCO RN NURSE NOTES: Per Dr. Zacarias Jorgensen will input rest of admission orders self when doing rounds. Noted. Will continue to monitor patient.
[2018-07-16] MEDS ORDERED: Albuterol/Ipratropium 3ml neb HHN SCH ×2 (13:00→19:00)
--- NOTE | 2018-07-16 14:31 | NUR ---
NURSE NOTES: Dr. Zacarias Jorgensen seen and examined patient. MD ordered potassium chloride 40 mEq PO x 1, medium insulin sliding scale, transfer to [facility]. Orders entered, noted, and carried out. Will continue to monitor patient.
--- NOTE | 2018-07-16 14:48 | Pulmonology Progress Note ---
Assessment/Plan Assessment/Plan Pulmonary Consultaion Chief Complaint: SOB HPI 77-year-old female presents c/o shortness of breath. States that patient has been having difficulty breathing for the last 3 days. History of asthma. Was admitted here in June for COPD exacerbation. Was subsequent discharged to [facility] facility. Patient was therefore one week and discharged home. Daughter states that patient was supposed to receive home oxygen but it came late. In the meanwhile symptoms started getting worse. Denies chest pain. Denies fevers or chills. Denies cough. No other aggravating relieving factors. Denies any other associated symptoms Allergies: No Known Allergies Past Medical History: DM, HTN, asthma, COPD, thyroid disease, diverticulitis Past Surgical History: none Pertinent Family History: none Social History: Denies: smoking, alcohol use, drug use All Other Systems: negative except mentioned in [facility] Physical Exam Vital Signs Noted Date Time Temp Pulse Resp B/P (MAP) Pulse Ox O2 Delivery O2 Flow Rate FiO2 07/16/18 07:53 97 23 Nasal Cannula 5.0 40 07/16/18 07:33 94 07/16/18 07:21 98.1 150/85 General Appearance: alert, GCS 15, non-toxic, mild distress Head: normocephalic, atraumatic Eyes: bilateral eye normal inspection, bilateral eye PERRL ENT: hearing grossly normal, normal pharynx, no angioedema, normal voice Neck: full range of motion, supple/symm/no masses Respiratory: chest non-tender, decreased breath sounds, accessory muscle use, speaking full sentences, wheezing Cardiovascular #1: regular rate, rhythm, no edema Cardiovascular #2: 2+ carotid (R), 2+ carotid (L), 2+ radial (R), 2+ radial (L) , 2+ dorsalis pedis (R), 2+ dorsalis pedis (L) Gastrointestinal: normal bowel sounds, non tender, soft, non-distended, no guarding, no rebound Rectal: deferred Genitourinary: normal inspection, no CVA tenderness Musculoskeletal: back normal, gait/station normal, normal range of motion, non- tender Neurologic: alert, oriented x3, responsive, motor strength/tone normal, sensory intact, speech normal Psychiatric: judgement/insight normal, memory normal, mood/affect normal, no suicidal/homicidal ideation Reflexes: 3+ bicep (R), 3+ bicep (L), 3+ tricep (R), 3+ tricep (L), 3+ knee (R) , 3+ knee (L) Skin: normal color, no rash, warm/dry, well hydrated Lymphatic: no adenopathy Impression: COPD exacerbation/h/o Asthma Elevated Troponin I No evidence of Pneumonia on CXR Diabetes Mellitis HTN Thyroid disease Diverticulitis Plan Continue Solumedrol HHN O2 PRN Continue antibiotics for now PPX 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0) Basophils (%) (Auto) 1.2 % (0.0-2.0) Sodium Level 140 MMOL/L (136-145) Potassium Level 3.2 MMOL/L (3.5-5.1) Chloride Level 101 MMOL/L (98-107) Carbon Dioxide Level 32 MMOL/L (21-32) Anion Gap 7 mmol/L (5-15) Blood Urea Nitrogen 11 mg/dL (7-18) Creatinine 0.7 MG/DL (0.55-1.30) Estimat Glomerular Filtration Rate mL/min (>60) Glucose Level 149 MG/DL (74-106) Lactic Acid Level 1.30 mmol/L (0.4-2.0) Calcium Level 9.6 MG/DL (8.5-10.1) Total Bilirubin 0.3 MG/DL (0.2-1.0) Aspartate Amino Transf (AST/SGOT) 29 U/L (15-37) Alanine Aminotransferase (ALT/SGPT) 25 U/L (12-78) Alkaline Phosphatase 70 U/L (46-116) Total Creatine Kinase 106 U/L (26-308) Creatine Kinase MB 4.8 NG/ML (0.0-3.6) Creatine Kinase MB Relative Index 4.5 Troponin I 0.208 ng/mL (0.000-0.056) Pro-B-Type Natriuretic Peptide 66 pg/mL (0-125) Total Protein 7.7 G/DL (6.4-8.2) Albumin 3.8 G/DL (3.4-5.0) Globulin 3.9 g/dL Albumin/Globulin Ratio 1.0 (1.0-2.7) EKG Diagnostic Results Rate: normal Rhythm: NSR Chest X-Ray Ordered: Yes # of Views/Limited/Complete: 1 View Indication: Shortness of Breath EP Interpretation: Yes Interpretation: Cardiomegaly, no consolidation, no effusion, no pneumothorax , no acute cardiopulmonary disease Impression: No acute disease Subjective ROS Limited/Unobtainable: No Respiratory: Reports: shortness of breath Allergies: Coded Allergies: No Known Allergies (Unverified , 06/16/18) Objective Last 24 Hour Vital Signs Date Time Temp Pulse Resp B/P (MAP) Pulse Ox O2 Delivery O2 Flow Rate FiO2 07/16/18 14:06 114 20 96 Nasal Cannula 2.0 07/16/18 12:00 103 07/16/18 10:51 Nasal Cannula 2.0 07/16/18 10:00 98.0 100 24 151/82 96 Nasal Cannula 5.0 40 07/16/18 09:39 98.0 105 20 155/78 94 Nasal Cannula 07/16/18 09:02 98.1 103 23 160/77 95 Nasal Cannula 5.0 40 07/16/18 08:25 100 21 94 Nasal Cannula 5.0 40 07/16/18 07:53 97 23 Nasal Cannula 5.0 40 07/16/18 07:33 97 23 94 Nasal Cannula 5.0 40 07/16/18 07:30 91 24 Nasal Cannula 5.0 40 07/16/18 07:21 98.1 87 21 150/85 100 Room Air 07/16/18 07:08 98.1 54 20 161/81 99 Room Air Microbiology Date/Time Source Procedure Growth Status 07/16/18 07:35 Nasal Nares Influenza Types A,B Antigen (YAYA) - Final Complete Laboratory Tests 07/16/18 07:35: White Blood Count 5.7, Red Blood Count 4.35, Hemoglobin 12.5, Hematocrit 39.3, Mean Corpuscular Volume 90, Mean Corpuscular Hemoglobin 28.8, Mean Corpuscular Hemoglobin Concent 31.9L, Red Cell Distribution Width 13.3, Platelet Count 197, Mean Platelet Volume 8.7, Neutrophils (%) (Auto) 76.7H, Lymphocytes (%) (Auto) 10.2L, Monocytes (%) (Auto) 9.1, Eosinophils (%) (Auto) 2.8, Basophils (%) (Auto ) 1.2, Sodium Level 140, Potassium Level 3.2L, Chloride Level 101, Carbon Dioxide Level 32, Anion Gap 7, Blood Urea Nitrogen 11, Creatinine 0.7, Estimat Glomerular Filtration Rate , Glucose Level 149H, Lactic Acid Level 1.30, Calcium Level 9.6, Total Bilirubin 0.3, Aspartate Amino Transf (AST/SGOT) 29, Alanine Aminotransferase (ALT/SGPT) 25, Alkaline Phosphatase 70, Total Creatine Kinase 106, Creatine Kinase MB 4.8H, Creatine Kinase MB Relative Index 4.5, Troponin I 0.208H, Pro-B-Type Natriuretic Peptide 66, Total Protein 7.7, Albumin 3.8, Globulin 3.9, Albumin/Globulin Ratio 1.0 07/16/18 09:10: Urine Color Pale yellow, Urine Appearance Clear, Urine pH 6.5, Urine Specific [place] 1.015, Urine Protein 2+H, Urine Glucose (UA) Negative, Urine Ketones 2+H , Urine Blood Negative, Urine Nitrite Negative, Urine Bilirubin Negative, Urine Urobilinogen Normal, Urine Leukocyte Esterase Negative, Urine RBC 0, Urine WBC 0 , Urine Squamous Epithelial Cells Occasional, Urine Bacteria None Current Medications Medications (Trade) Dose Ordered Sig/Kathryn Route PRN Reason Start Time Stop Time Status Last Admin Dose Admin Albuterol/ Ipratropium (Albuterol/ Ipratropium) 3 ml Q6HRT HHN 07/16/18 13:00 07/21/18 12:59 07/16/18 14:02 Dextrose (Dextrose 50%) 25 ml Q30M PRN IV Hypoglycemia 07/16/18 14:30 08/15/18 14:29 Dextrose (Dextrose 50%) 50 ml Q30M PRN IV Hypoglycemia 07/16/18 14:30 08/15/18 14:29 Insulin Aspart (NovoLOG) BEFORE MEALS AND HS SUBQ 07/16/18 16:30 08/15/18 16:29 Methylprednisolone Sodium Succinate (Solu-MEDROL) 60 mg EVERY 12 HOURS IVP 07/16/18 21:00 08/15/18 20:59 Potassium Chloride (K-Dur) 40 meq ONCE ORAL 07/16/18 14:30 07/16/18 15:30 07/16/18 14:40 Tolu Barajas MD Jul 16, 2018 14:48
--- NOTE | 2018-07-16 15:06 | History & Physical ---
History and Physical History & Physicial [facility] [phone] Tavo Jorgensen MD Jul 16, 2018 15:06
[2018-07-16] MEDS ORDERED: Piperacillin/Tazobactam 3.375 GM in D5W 110 ML IVPB SCH (16:00)
[2018-07-16] MEDS ORDERED: NovoLOG Insulin Flexpen SUBQ SCH ×2 (16:30→21:00)
--- NOTE | 2018-07-16 16:35 | NUR ---
TRANSFER TO FLOOR: Patient transferred to [facility], per Dr. Zacarias Jorgensen. Report given to MADHAV Hood. Belongings and medications given MADHAV Hood. Family informed of transfer.
--- NOTE | 2018-07-16 16:40 | NUR ---
NURSE NOTES: Received report from Kala Stallings RN. Belongings checked with outgoing nurse. Patient a/o x4 and denies any pain at this time. No respiratory discomfort noted. Bed in lowest position and call light within reach. Will continue to monitor.
[2018-07-16 17:00] VITALS: BP 151/75
[2018-07-16] MEDS: NovoLOG Insulin Flexpen SUBQ SCH ×2 (17:49→21:31)
--- NOTE | 2018-07-16 18:25 | NUR ---
NURSE NOTES: Patient c/o neuro pain on right leg and called Dr. Jorgensen and luli call back.
--- NOTE | 2018-07-16 18:30 | NUR ---
NURSE NOTES: Dr. Jorgensen called back and ordered. 1. [place] 5/325 mg 1 tab Q4HR prn for moderate pain 2. [place] 10/325 mg 1 tab Q4HR PRN for severe pain noted and carried out.
[2018-07-16] MEDS: Norco 5mg/325mg tab ORAL PRN ×2 (18:37→23:00)
--- NOTE | 2018-07-16 19:30 | NUR ---
NURSE NOTES: Received pt sitting up in bed, A&OX4, denies any pain, IV R AC patent and intact. Pt on O2 2 liters via nasal canula. No distress noted. Bed in low position and locked, side rails up x 2, call light within reach. Will continue to monitor.
--- NOTE | 2018-07-16 19:38 | NUR ---
HAND-OFF: Report given to MADHAV Mccallum.
[2018-07-16 20:00] VITALS: BP 152/85
--- NOTE | 2018-07-16 20:30 | NUR ---
NURSE NOTES: Dr. Tolu Barajas came and saw pt orders given and carried out.
--- NOTE | 2018-07-16 20:30 | History and Physical Report ---
DATE OF ADMISSION: 07/16/2018 CHIEF COMPLAINT: Shortness of breath, cough, and sputum production. HISTORY OF PRESENT ILLNESS: This is a 77-year-old female, who was apparently recently in the hospital for chronic obstructive pulmonary disease exacerbation. [facility]. Subsequently, went home. However, she has been getting more and more short of breath, also complaining of cough and some sputum, which looked like cream. The patient was brought in to the emergency room was admitted for diagnosis of chronic obstructive pulmonary disease exacerbation. PAST MEDICAL HISTORY: Include history of diabetes, hypertension, and chronic obstructive pulmonary disease. MEDICATIONS: Reviewed in EMR. ALLERGIES: No known drug allergies. SOCIAL HISTORY: Remote history of smoking. No history of alcohol abuse. The patient lives at home. REVIEW OF SYSTEMS: As above. PHYSICAL EXAMINATION: GENERAL: The patient is an elderly female, in no acute distress. VITAL SIGNS: Blood pressure 161/81, pulse is 54, temperature 98.1, and respiratory rate is 20. HEENT: Somewhat pale conjunctivae. Anicteric sclerae. NECK: Supple. LUNGS: Bilateral expiratory wheezing. HEART: S1 and S2 without murmurs or rubs. ABDOMEN: Soft and nontender. EXTREMITIES: No cyanosis or edema. LABORATORY FINDINGS: The CBC shows WBC of 5700, hematocrit is , hemoglobin is 12.5, and platelets is 197,000. The chemistry panel shows a sodium 140, potassium 3.2, chloride 101, CO2 32, BUN is , and creatinine 0.7. Blood sugar is 149. UA was unremarkable except 2+ protein. ASSESSMENT: This is a 77-year-old female who was admitted with chronic obstructive pulmonary disease exacerbation, possibly also some acute bronchitis. She has history of diabetes and hypertension. PLAN: The patient will be on bronchodilators and antibiotics. She will be on diabetic diet. Blood sugars will be checked. The patient will be seen by a dairy manager. She will be also started on steroids. Case was discussed with the patient's RN. Thank you very much for this consultation. Tavo Jorgensen M.D. DR: FÉLIX JOB#: [id number] CC:
[2018-07-16] MEDS ORDERED: Solu-MEDROL 125mg Inj IVP SCH (21:00)
[2018-07-16] MEDS: Solu-MEDROL 125mg Inj IVP SCH (21:26)
[2018-07-16] MEDS: Heparin 5000 units/ml inj SUBQ SCH (21:30)
[2018-07-16] MEDS ORDERED: Piperacillin/Tazobactam 3.375 GM in NS 110 ML IVPB SCH (22:00)
[2018-07-16] MEDS: Piperacillin/Tazobactam 3.375 GM in NS 110 ML IVPB SCH (23:38)
[2018-07-17] VITALS: BP 157/101
[2018-07-17] MEDS ORDERED: Piperacillin/Tazobactam 3.375 GM in D5W 110 ML IVPB SCH ×2
[2018-07-17] MEDS: Albuterol/Ipratropium 3ml neb HHN PRN ×4 (02:12→21:43)
[2018-07-17 04:00] VITALS: BP 158/91
[2018-07-17] MEDS: HYDROcodone/Acetamin 10/325 tab ORAL PRN ×2 (04:02→19:24)
[2018-07-17] MEDS: NovoLOG Insulin Flexpen SUBQ SCH ×4 (05:36→21:10)
[2018-07-17 07:10] LABS: BASOPHILS % (AUTO) 0.6 % (0.0-2.0); HEMATOCRIT 37.2 % (37.0-47.0); HEMOGLOBIN 12.2 G/DL (12.0-16.0); LYMPHOCYTES % (AUTO) 17.9 % (20.0-45.0); MEAN CORPUSCULAR VOLUME 89 FL (80-99); MONOCYTES % (AUTO) 3.2 % (1.0-10.0); NEUTROPHILS % (AUTO) 78.3 % (45.0-75.0); PLATELET COUNT 194 K/UL (150-450); RED BLOOD COUNT 4.18 M/UL (4.20-5.40); RED CELL DISTRIBUTION WIDTH 13.1 % (11.6-14.8); WHITE BLOOD COUNT 4.9 K/UL (4.8-10.8)
--- NOTE | 2018-07-17 07:32 | NUR ---
HAND-OFF: Report given to MADHAV Cavazos. Pt in stable condition.
--- NOTE | 2018-07-17 07:33 | NUR ---
HAND-OFF: Report given to MADHAV Guerrero. Pt in stable condition.
--- NOTE | 2018-07-17 07:53 | NUR ---
NURSE NOTES: Received report from MADHAV Mccallum. Rounding done with outgoing nurse. Patient a/o x4 and having breakfast. No SOB or respiratory discomfort noted. c/o pain on right leg and [place] was given by night nurse. Bed in lowest position and call light within reach. Will continue to monitor.
[2018-07-17 08:00] VITALS: BP 132/81
[2018-07-17] MEDS: Piperacillin/Tazobactam 3.375 GM in NS 110 ML IVPB SCH ×3 (08:00→23:51)
[2018-07-17 08:05] LABS: ANION GAP 7 mmol/L (5-15); BLOOD UREA NITROGEN 9 mg/dL (7-18); CALCIUM 9.8 MG/DL (8.5-10.1); CARBON DIOXIDE 33 MMOL/L (21-32); CHLORIDE 103 MMOL/L (98-107); CREATININE 0.6 MG/DL (0.55-1.30); POTASSIUM 3.5 MMOL/L (3.5-5.1); SODIUM 143 MMOL/L (136-145)
[2018-07-17] MEDS: Solu-MEDROL 125mg Inj IVP SCH ×2 (08:33→21:05)
[2018-07-17] MEDS: Heparin 5000 units/ml inj SUBQ SCH ×2 (08:35→21:09)
[2018-07-17 12:00] VITALS: BP 144/87
--- NOTE | 2018-07-17 12:06 | Pulmonology Progress Note ---
Assessment/Plan Assessment/Plan Pulmonary Progress Note Chief Complaint: SOB HPI 77-year-old female presents c/o shortness of breath. States that patient has been having difficulty breathing for the last 3 days. History of asthma. Was admitted here in June for COPD exacerbation. Was subsequent [facility] to [facility]. Patient was therefore one week and discharged home. Daughter states that patient was supposed to receive home oxygen but it came late. In the meanwhile symptoms started getting worse. Denies chest pain. Denies fevers or chills. Denies cough. No other aggravating relieving factors. Denies any other associated symptoms Allergies: No Known Allergies Past Medical History: DM, HTN, asthma, COPD, thyroid disease, diverticulitis Past Surgical History: none Pertinent Family History: none Social History: Denies: smoking, alcohol use, drug use All Other Systems: negative except mentioned in HPI Physical Exam Vital Signs Noted General Appearance: alert, GCS 15, non-toxic, mild distress Head: normocephalic, atraumatic Eyes: bilateral eye normal inspection, bilateral eye PERRL ENT: hearing grossly normal, normal pharynx, no angioedema, normal voice Neck: full range of motion, supple/symm/no masses Respiratory: chest non-tender, decreased breath sounds, accessory muscle use, speaking full sentences, wheezing Cardiovascular #1: regular rate, rhythm, no edema Cardiovascular #2: 2+ carotid (R), 2+ carotid (L), 2+ radial (R), 2+ radial (L) , 2+ dorsalis pedis (R), 2+ dorsalis pedis (L) Gastrointestinal: normal bowel sounds, non tender, soft, non-distended, no guarding, no rebound Rectal: deferred Genitourinary: normal inspection, no CVA tenderness Musculoskeletal: back normal, gait/station normal, normal range of motion, non- tender Neurologic: alert, oriented x3, responsive, motor strength/tone normal, sensory intact, speech normal Psychiatric: judgement/insight normal, memory normal, mood/affect normal, no suicidal/homicidal ideation Reflexes: 3+ bicep (R), 3+ bicep (L), 3+ tricep (R), 3+ tricep (L), 3+ knee (R) , 3+ knee (L) Skin: normal color, no rash, warm/dry, well hydrated Lymphatic: no adenopathy Impression: COPD exacerbation/h/o Asthma Elevated Troponin I No evidence of Pneumonia on CXR Diabetes Mellitis HTN Thyroid disease Diverticulitis Plan Continue Solumedrol HHN O2 PRN Continue antibiotics for now PPX [employer] medications Monitor labs Labs Test 07/16/18 07:35 White Blood Count 5.7 K/UL (4.8-10.8) Red Blood Count 4.35 M/UL (4.20-5.40) Hemoglobin 12.5 G/DL (12.0-16.0) Hematocrit 39.3 % (37.0-47.0) Mean Corpuscular Volume 90 FL (80-99) Mean Corpuscular Hemoglobin 28.8 PG (27.0-31.0) Mean Corpuscular Hemoglobin Concent 31.9 G/DL (32.0-36.0) Red Cell Distribution Width 13.3 % (11.6-14.8) Platelet Count 197 K/UL (150-450) Mean Platelet Volume 8.7 FL (6.5-10.1) Neutrophils (%) (Auto) 76.7 % (45.0-75.0) Lymphocytes (%) (Auto) 10.2 % (20.0-45.0) Monocytes (%) (Auto) 9.1 % (1.0-10.0) Eosinophils (%) (Auto) 2.8 % (0.0-3.0) Basophils (%) (Auto) 1.2 % (0.0-2.0) Sodium Level 140 MMOL/L (136-145) Potassium Level 3.2 MMOL/L (3.5-5.1) Chloride Level 101 MMOL/L (98-107) Carbon Dioxide Level 32 MMOL/L (21-32) Anion Gap 7 mmol/L (5-15) Blood Urea Nitrogen 11 mg/dL (7-18) Creatinine 0.7 MG/DL (0.55-1.30) Estimat Glomerular Filtration Rate mL/min (>60) Glucose Level 149 MG/DL (74-106) Lactic Acid Level 1.30 mmol/L (0.4-2.0) Calcium Level 9.6 MG/DL (8.5-10.1) Total Bilirubin 0.3 MG/DL (0.2-1.0) Aspartate Amino Transf (AST/SGOT) 29 U/L (15-37) Alanine Aminotransferase (ALT/SGPT) 25 U/L (12-78) Alkaline Phosphatase 70 U/L (46-116) Total Creatine Kinase 106 U/L (26-308) Creatine Kinase MB 4.8 NG/ML (0.0-3.6) Creatine Kinase MB Relative Index 4.5 Troponin I 0.208 ng/mL (0.000-0.056) Pro-B-Type Natriuretic Peptide 66 pg/mL (0-125) Total Protein 7.7 G/DL (6.4-8.2) Albumin 3.8 G/DL (3.4-5.0) Globulin 3.9 g/dL Albumin/Globulin Ratio 1.0 (1.0-2.7) EKG Diagnostic Results Rate: normal Rhythm: NSR Chest X-Ray Ordered: Yes # of Views/Limited/Complete: 1 View Indication: Shortness of Breath EP Interpretation: Yes Interpretation: Cardiomegaly, no consolidation, no effusion, no pneumothorax , no acute cardiopulmonary disease Impression: No acute disease Subjective ROS Limited/Unobtainable: No Allergies: Coded Allergies: No Known Allergies (Unverified , 06/16/18) Objective Last 24 Hour Vital Signs Date Time Temp Pulse Resp B/P (MAP) Pulse Ox O2 Delivery O2 Flow Rate FiO2 07/17/18 09:51 94 20 98 Nasal Cannula 2.0 07/17/18 09:45 92 23 Nasal Cannula 5.0 40 07/17/18 09:45 Nasal Cannula 2.0 28 07/17/18 09:45 93 20 95 Nasal Cannula 2.0 07/17/18 09:45 97 Nasal Cannula 2.0 07/17/18 08:00 98.1 99 19 132/81 (98) 95 07/17/18 04:00 98.9 103 20 158/91 (113) 94 07/17/18 02:25 102 20 99 Nasal Cannula 2.0 28 07/17/18 02:13 98 18 98 Nasal Cannula 2.0 28 07/17/18 00:00 98.9 101 20 157/101 (119) 93 07/16/18 21:00 Nasal Cannula 2.0 07/16/18 20:00 98.5 109 20 152/85 (107) 93 07/16/18 19:39 Nasal Cannula 2.0 28 07/16/18 19:38 108 20 97 Nasal Cannula 2.0 28 07/16/18 19:38 96 Nasal Cannula 2.0 28 07/16/18 19:27 103 18 96 Nasal Cannula 2.0 28 07/16/18 17:00 97.8 92 22 151/75 (100) 95 07/16/18 14:11 111 20 96 Nasal Cannula 2.0 28 07/16/18 14:06 114 20 96 Nasal Cannula 2.0 28 Intake and Output 07/16/18 07/17/18 19:00 07:00 Intake Total 670 ml 420.0 ml Output Total 600 ml 400 ml Balance 70 ml 20.0 ml Intake Oral 170 ml 200 ml IV Total 500 ml 220.0 ml Output Urine Total 600 ml 400 ml # Voids 2 # Bowel Movements 1 2 Microbiology Date/Time Source Procedure Growth Status 07/16/18 07:35 Nasal Nares Influenza Types A,B Antigen (YAYA) - Final Complete Laboratory Tests 07/17/18 05:54: White Blood Count 4.9, Red Blood Count 4.18L, Hemoglobin 12.2, Hematocrit 37.2, Mean Corpuscular Volume 89, Mean Corpuscular Hemoglobin 29.3, Mean Corpuscular Hemoglobin Concent 32.9, Red Cell Distribution Width 13.1, Platelet Count 194, Mean Platelet Volume 8.3, Neutrophils (%) (Auto) 78.3H, Lymphocytes (%) (Auto) 17.9L, Monocytes (%) (Auto) 3.2, Eosinophils (%) (Auto) 0.0, Basophils (%) (Auto ) 0.6, Sodium Level 143, Potassium Level 3.5, Chloride Level 103, Carbon Dioxide Level 33H, Anion Gap 7, Blood Urea Nitrogen 9, Creatinine 0.6, Estimat Glomerular Filtration Rate , Glucose Level 150H, Calcium Level 9.8, Magnesium Level 1.9, Troponin I 0.187H Current Medications Medications (Trade) Dose Ordered Sig/Kathryn Route PRN Reason Start Time Stop Time Status Last Admin Dose Admin Acetaminophen/ Hydrocodone Bitart ([place] 10/325) 1 tab Q4H PRN ORAL Severe Pain (Pain Scale 7-10) 07/16/18 18:30 07/23/18 18:29 07/17/18 04:02 Acetaminophen/ Hydrocodone Bitart ([place] 5/325) 1 tab Q4H PRN ORAL Moderate Pain (Pain Scale 4-6) 07/16/18 18:30 07/23/18 18:29 07/16/18 23:00 Albuterol/ Ipratropium (Albuterol/ Ipratropium) 3 ml Q4H PRN HHN Shortness of Breath 07/16/18 20:15 07/21/18 20:14 07/17/18 09:46 Dextrose (Dextrose 50%) 25 ml Q30M PRN IV Hypoglycemia 07/16/18 17:00 08/15/18 14:29 Dextrose (Dextrose 50%) 50 ml Q30M PRN IV Hypoglycemia 07/16/18 17:00 08/15/18 14:29 Doxycycline Monohydrate (Vibramycin) 100 mg EVERY 12 HOURS ORAL 07/16/18 21:00 07/23/18 20:59 07/17/18 08:33 Heparin Sodium (Porcine) (Heparin 5000 units/ml) 5,000 units EVERY 12 HOURS SUBQ 07/16/18 21:00 08/15/18 20:59 07/17/18 08:35 Insulin Aspart (NovoLOG) BEFORE MEALS AND HS SUBQ 07/16/18 17:49 08/15/18 17:48 07/17/18 05:36 Methylprednisolone Sodium Succinate (Solu-MEDROL) 60 mg EVERY 12 HOURS IVP 07/16/18 21:00 08/15/18 20:59 07/17/18 08:33 Piperacillin Sod/ Tazobactam Sod 3.375 gm/Sodium Chloride 110 ml @ 27.5 mls/hr Q8H IVPB 07/17/18 00:00 07/18/18 00:00 07/17/18 08:00 Tolu Barajas MD Jul 17, 2018 12:06
--- NOTE | 2018-07-17 14:55 | General Progress Note ---
Assessment/Plan Problem List: (1) COPD exacerbation ICD Codes: J44.1 - Chronic obstructive pulmonary disease with (acute) exacerbation SNOMED: 193824828 (2) Hypothyroidism ICD Codes: E03.9 - Hypothyroidism, unspecified SNOMED: 01951588 (3) History of hypertension ICD Codes: Z86.79 - Personal history of other diseases of the circulatory system SNOMED: 414839736 (4) History of chronic CHF ICD Codes: Z86.79 - Personal history of other diseases of the circulatory system SNOMED: 591540372 Assessment/Plan Bronchodilators IV steroids Abxs O2 PT follow labs Subjective Allergies: Coded Allergies: No Known Allergies (Unverified , 06/16/18) Subjective feels the same Objective Last 24 Hour Vital Signs Date Time Temp Pulse Resp B/P (MAP) Pulse Ox O2 Delivery O2 Flow Rate FiO2 07/17/18 12:00 98.1 99 19 144/87 (106) 98 07/17/18 12:00 Nasal Cannula 2.0 07/17/18 09:51 94 20 98 Nasal Cannula 2.0 07/17/18 09:45 92 23 Nasal Cannula 5.0 40 07/17/18 09:45 Nasal Cannula 2.0 28 07/17/18 09:45 93 20 95 Nasal Cannula 2.0 28 07/17/18 09:45 97 Nasal Cannula 2.0 07/17/18 08:00 98.1 99 19 132/81 (98) 95 07/17/18 04:00 98.9 103 20 158/91 (113) 94 07/17/18 02:25 102 20 99 Nasal Cannula 2.0 28 07/17/18 02:13 98 18 98 Nasal Cannula 2.0 07/17/18 00:00 98.9 101 20 157/101 (119) 93 07/16/18 21:00 Nasal Cannula 2.0 07/16/18 20:00 98.5 109 20 152/85 (107) 93 07/16/18 19:39 Nasal Cannula 2.0 28 07/16/18 19:38 108 20 97 Nasal Cannula 2.0 28 07/16/18 19:38 96 Nasal Cannula 2.0 28 07/16/18 19:27 103 18 96 Nasal Cannula 2.0 28 07/16/18 17:00 97.8 92 22 151/75 (100) 95 Intake and Output 07/16/18 07/17/18 19:00 07:00 Intake Total 670 ml 420.0 ml Output Total 600 ml 400 ml Balance 70 ml 20.0 ml Intake Oral 170 ml 200 ml IV Total 500 ml 220.0 ml Output Urine Total 600 ml 400 ml # Voids 2 # Bowel Movements 1 2 Laboratory Tests 07/17/18 05:54: White Blood Count 4.9, Red Blood Count 4.18L, Hemoglobin 12.2, Hematocrit 37.2, Mean Corpuscular Volume 89, Mean Corpuscular Hemoglobin 29.3, Mean Corpuscular Hemoglobin Concent 32.9, Red Cell Distribution Width 13.1, Platelet Count 194, Mean Platelet Volume 8.3, Neutrophils (%) (Auto) 78.3H, Lymphocytes (%) (Auto) 17.9L, Monocytes (%) (Auto) 3.2, Eosinophils (%) (Auto) 0.0, Basophils (%) (Auto ) 0.6, Sodium Level 143, Potassium Level 3.5, Chloride Level 103, Carbon Dioxide Level 33H, Anion Gap 7, Blood Urea Nitrogen 9, Creatinine 0.6, Estimat Glomerular Filtration Rate , Glucose Level 150H, Calcium Level 9.8, Magnesium Level 1.9, Troponin I 0.187H Height (Feet): 4 Height (Inches): 11.00 Weight (Pounds): 180 Cardiovascular: normal rate Respiratory/Chest: expiratory wheezing Edema: no edema noted Tavo Farris MD Jul 17, 2018 14:55
[2018-07-17 16:00] VITALS: BP 157/80
--- NOTE | 2018-07-17 19:28 | NUR ---
HAND-OFF: Report given to MADHAV Mccallum.
--- NOTE | 2018-07-17 19:30 | NUR ---
NURSE NOTES: Received report from MADHAV Guerrero and rounds done. Received pt lying in bed, A&OX4, denies any pain, no SOB,on O2 2 liters via nasal canula, no distress noted. IV R AC patent and intact. Bed in low position and locked, side rails up x 2, call light within reach. Will continue to monitor.
[2018-07-17 20:00] VITALS: BP 157/95
[2018-07-17] MEDS: guaiFENesin w/Codeine 5ml Liq ud ORAL PRN (21:19)
[2018-07-18] VITALS: BP 146/89
[2018-07-18 04:00] VITALS: BP 147/89
[2018-07-18] MEDS: guaiFENesin w/Codeine 5ml Liq ud ORAL PRN ×3 (05:02→22:32)
[2018-07-18] MEDS: NovoLOG Insulin Flexpen SUBQ SCH ×4 (05:39→21:14)
--- NOTE | 2018-07-18 07:19 | NUR ---
HAND-OFF: Report given to MADHAV Hood. Pt in stable condition.
--- NOTE | 2018-07-18 07:38 | NUR ---
NURSE NOTES: Received patient from Alessio Chamorro RN. Patient a/o x4 and denies any pain at this time. Patient having breakfast. SCD on. Bed in lowest position and call light within reach. Will continue to monitor.
[2018-07-18 08:00] VITALS: BP 152/80
[2018-07-18] MEDS: Solu-MEDROL 125mg Inj IVP SCH ×2 (08:51→20:51)
[2018-07-18] MEDS: HYDROcodone/Acetamin 10/325 tab ORAL PRN ×3 (08:51→19:42)
[2018-07-18] MEDS: Heparin 5000 units/ml inj SUBQ SCH ×2 (08:52→20:58)
[2018-07-18] MEDS: Albuterol/Ipratropium 3ml neb HHN PRN (09:54)
[2018-07-18 12:00] VITALS: BP 134/77
--- NOTE | 2018-07-18 12:43 | General Progress Note ---
Assessment/Plan Problem List: (1) COPD exacerbation ICD Codes: J44.1 - Chronic obstructive pulmonary disease with (acute) exacerbation SNOMED: 036145510 (2) Hypothyroidism ICD Codes: E03.9 - Hypothyroidism, unspecified SNOMED: 46260465 (3) History of hypertension ICD Codes: Z86.79 - Personal history of other diseases of the circulatory system SNOMED: 660213484 (4) History of chronic CHF ICD Codes: Z86.79 - Personal history of other diseases of the circulatory system SNOMED: 706962490 Assessment/Plan Bronchodilators IV steroids Abxs O2 PT Subjective Allergies: Coded Allergies: No Known Allergies (Unverified , 06/16/18) Subjective feels the same Objective Last 24 Hour Vital Signs Date Time Temp Pulse Resp B/P (MAP) Pulse Ox O2 Delivery O2 Flow Rate FiO2 07/18/18 10:02 99 20 100 Nasal Cannula 2.0 28 07/18/18 09:54 90 20 96 Nasal Cannula 2.0 28 07/18/18 09:54 96 Nasal Cannula 2.0 28 07/18/18 09:54 Nasal Cannula 2.0 28 07/18/18 09:00 Nasal Cannula 2.0 07/18/18 08:00 99.2 100 18 152/80 (104) 96 07/18/18 04:00 98.2 99 18 147/89 (108) 94 07/18/18 00:00 98.0 93 18 146/89 (108) 94 07/17/18 21:45 106 20 100 Nasal Cannula 2.0 07/17/18 21:44 Nasal Cannula 2.0 28 07/17/18 21:44 97 Nasal Cannula 2.0 28 07/17/18 21:33 97 18 97 Nasal Cannula 2.0 28 07/17/18 21:00 Nasal Cannula 2.0 07/17/18 20:00 98.5 102 20 157/95 (115) 94 07/17/18 16:00 98.9 101 19 157/80 (105) 99 07/17/18 15:16 102 18 99 Nasal Cannula 2.0 28 07/17/18 15:07 103 18 97 Nasal Cannula 2.0 28 Intake and Output 07/17/18 07/18/18 19:00 07:00 Intake Total 477.5 ml 312.5 ml Output Total 400 ml Balance 477.5 ml -87.5 ml Intake Oral 450 ml 120 ml IV Total 27.5 ml 192.5 ml Output Urine Total 400 ml # Bowel Movements 2 Height (Feet): 4 Height (Inches): 11.00 Weight (Pounds): 180 Cardiovascular: normal rate Respiratory/Chest: lungs clear Tavo Jorgensen MD Jul 18, 2018 12:43
--- NOTE | 2018-07-18 13:32 | NUR ---
PT note PT kunal completed, treatment initiated. Patient was cooperative and motivated. Frequent coughing is noted all throughout visit. Noted patient's O2 sats at 88-92% after ambulating ~80 ft, unable to raise it above 92%. RN was notified; patient was assisted to a and wheeled back to her room. Addendum: 07/18/18 at 1333 by LAUREL MENDOZA PT Amended: Links added.
--- NOTE | 2018-07-18 14:03 | Pulmonology Progress Note ---
Assessment/Plan Assessment/Plan Pulmonary Progress Note Chief Complaint: SOB HPI 77-year-old female presents c/o shortness of breath. States that patient has been having difficulty breathing for the last 3 days. History of asthma. Was admitted here in June for COPD exacerbation. Was subsequent discharged to [facility] facility. Patient was therefore one week and discharged home. Daughter states that patient was supposed to receive home oxygen but it came late. In the meanwhile symptoms started getting worse. Denies chest pain. Denies fevers or chills. Denies cough. No other aggravating relieving factors. Denies any other associated symptoms Less SOB Allergies: No Known Allergies Past Medical History: DM, HTN, asthma, COPD, thyroid disease, diverticulitis Past Surgical History: none Pertinent Family History: none Social History: Denies: smoking, alcohol use, drug use All Other Systems: negative except mentioned in HPI Physical Exam Vital Signs Noted General Appearance: alert, GCS 15, non-toxic, mild distress Head: normocephalic, atraumatic Eyes: bilateral eye normal inspection, bilateral eye PERRL ENT: hearing grossly normal, normal pharynx, no angioedema, normal voice Neck: full range of motion, supple/symm/no masses Respiratory: chest non-tender, decreased breath sounds, accessory muscle use, speaking full sentences, wheezing Cardiovascular #1: regular rate, rhythm, no edema Cardiovascular #2: 2+ carotid (R), 2+ carotid (L), 2+ radial (R), 2+ radial (L) , 2+ dorsalis pedis (R), 2+ dorsalis pedis (L) Gastrointestinal: normal bowel sounds, non tender, soft, non-distended, no guarding, no rebound Rectal: deferred Genitourinary: normal inspection, no CVA tenderness Musculoskeletal: back normal, gait/station normal, normal range of motion, non- tender Neurologic: alert, oriented x3, responsive, motor strength/tone normal, sensory intact, speech normal Psychiatric: judgement/insight normal, memory normal, mood/affect normal, no suicidal/homicidal ideation Reflexes: 3+ bicep (R), 3+ bicep (L), 3+ tricep (R), 3+ tricep (L), 3+ knee (R) , 3+ knee (L) Skin: normal color, no rash, warm/dry, well hydrated Lymphatic: no adenopathy Impression: COPD exacerbation/h/o Asthma Elevated Troponin I No evidence of Pneumonia on CXR Diabetes Mellitis HTN Thyroid disease Diverticulitis Plan Continue Solumedrol HHN O2 PRN Continue antibiotics for now PPX [employer] medications Monitor labs Labs CXR: No acute process Test 07/16/18 07:35 White Blood Count 5.7 K/UL (4.8-10.8) Red Blood Count 4.35 M/UL (4.20-5.40) Hemoglobin 12.5 G/DL (12.0-16.0) Hematocrit 39.3 % (37.0-47.0) Mean Corpuscular Volume 90 FL (80-99) Mean Corpuscular Hemoglobin 28.8 PG (27.0-31.0) Mean Corpuscular Hemoglobin Concent 31.9 G/DL (32.0-36.0) Red Cell Distribution Width 13.3 % (11.6-14.8) Platelet Count 197 K/UL (150-450) Mean Platelet Volume 8.7 FL (6.5-10.1) Neutrophils (%) (Auto) 76.7 % (45.0-75.0) Lymphocytes (%) (Auto) 10.2 % (20.0-45.0) Monocytes (%) (Auto) 9.1 % (1.0-10.0) Eosinophils (%) (Auto) 2.8 % (0.0-3.0) Basophils (%) (Auto) 1.2 % (0.0-2.0) Sodium Level 140 MMOL/L (136-145) Potassium Level 3.2 MMOL/L (3.5-5.1) Chloride Level 101 MMOL/L (98-107) Carbon Dioxide Level 32 MMOL/L (21-32) Anion Gap 7 mmol/L (5-15) Blood Urea Nitrogen 11 mg/dL (7-18) Creatinine 0.7 MG/DL (0.55-1.30) Estimat Glomerular Filtration Rate mL/min (>60) Glucose Level 149 MG/DL (74-106) Lactic Acid Level 1.30 mmol/L (0.4-2.0) Calcium Level 9.6 MG/DL (8.5-10.1) Total Bilirubin 0.3 MG/DL (0.2-1.0) Aspartate Amino Transf (AST/SGOT) 29 U/L (15-37) Alanine Aminotransferase (ALT/SGPT) 25 U/L (12-78) Alkaline Phosphatase 70 U/L (46-116) Total Creatine Kinase 106 U/L (26-308) Creatine Kinase MB 4.8 NG/ML (0.0-3.6) Creatine Kinase MB Relative Index 4.5 Troponin I 0.208 ng/mL (0.000-0.056) Pro-B-Type Natriuretic Peptide 66 pg/mL (0-125) Total Protein 7.7 G/DL (6.4-8.2) Albumin 3.8 G/DL (3.4-5.0) Globulin 3.9 g/dL Albumin/Globulin Ratio 1.0 (1.0-2.7) EKG Diagnostic Results Rate: normal Rhythm: NSR Chest X-Ray Ordered: Yes # of Views/Limited/Complete: 1 View Indication: Shortness of Breath EP Interpretation: Yes Interpretation: Cardiomegaly, no consolidation, no effusion, no pneumothorax , no acute cardiopulmonary disease Impression: No acute disease Subjective ROS Limited/Unobtainable: No Allergies: Coded Allergies: No Known Allergies (Unverified , 06/16/18) Objective Last 24 Hour Vital Signs Date Time Temp Pulse Resp B/P (MAP) Pulse Ox O2 Delivery O2 Flow Rate FiO2 07/18/18 12:00 98.1 103 20 134/77 (96) 94 07/18/18 10:02 99 20 100 Nasal Cannula 2.0 28 07/18/18 09:54 90 20 96 Nasal Cannula 2.0 07/18/18 09:54 96 Nasal Cannula 2.0 07/18/18 09:54 Nasal Cannula 2.0 28 07/18/18 09:00 Nasal Cannula 2.0 07/18/18 08:00 99.2 100 18 152/80 (104) 96 07/18/18 04:00 98.2 99 18 147/89 (108) 94 07/18/18 00:00 98.0 93 18 146/89 (108) 94 07/17/18 21:45 106 20 100 Nasal Cannula 2.0 28 07/17/18 21:44 Nasal Cannula 2.0 28 07/17/18 21:44 97 Nasal Cannula 2.0 28 07/17/18 21:33 97 18 97 Nasal Cannula 2.0 28 07/17/18 21:00 Nasal Cannula 2.0 07/17/18 20:00 98.5 102 20 157/95 (115) 94 07/17/18 16:00 98.9 101 19 157/80 (105) 99 07/17/18 15:16 102 18 99 Nasal Cannula 2.0 28 07/17/18 15:07 103 18 97 Nasal Cannula 2.0 28 Intake and Output 07/17/18 07/18/18 19:00 07:00 Intake Total 477.5 ml 312.5 ml Output Total 400 ml Balance 477.5 ml -87.5 ml Intake Oral 450 ml 120 ml IV Total 27.5 ml 192.5 ml Output Urine Total 400 ml # Bowel Movements 2 Microbiology Date/Time Source Procedure Growth Status 07/16/18 07:50 Blood Blood Culture - Preliminary NO GROWTH AFTER 24 HOURS Resulted 07/16/18 07:35 Blood Blood Culture - Preliminary NO GROWTH AFTER 24 HOURS Resulted 07/16/18 07:35 Nasal Nares Influenza Types A,B Antigen (YAYA) - Final Complete Current Medications Medications (Trade) Dose Ordered Sig/Kathryn Route PRN Reason Start Time Stop Time Status Last Admin Dose Admin Acetaminophen/ Hydrocodone Bitart ([place] 10/325) 1 tab Q4H PRN ORAL Severe Pain (Pain Scale 7-10) 07/16/18 18:30 07/23/18 18:29 07/18/18 12:46 Acetaminophen/ Hydrocodone Bitart ([place] 5/325) 1 tab Q4H PRN ORAL Moderate Pain (Pain Scale 4-6) 07/16/18 18:30 07/23/18 18:29 07/16/18 23:00 Albuterol/ Ipratropium (Albuterol/ Ipratropium) 3 ml Q4H PRN HHN Shortness of Breath 07/16/18 20:15 07/21/18 20:14 07/18/18 09:54 Dextrose (Dextrose 50%) 25 ml Q30M PRN IV Hypoglycemia 07/16/18 17:00 08/15/18 14:29 Dextrose (Dextrose 50%) 50 ml Q30M PRN IV Hypoglycemia 07/16/18 17:00 08/15/18 14:29 Doxycycline Monohydrate (Vibramycin) 100 mg EVERY 12 HOURS ORAL 07/16/18 21:00 07/23/18 20:59 07/18/18 08:51 Guaifenesin/ Codeine Phosphate (Robitussin with codeine) 5 ml Q6H PRN ORAL For Cough 07/17/18 20:00 08/16/18 19:59 07/18/18 11:19 Heparin Sodium (Porcine) (Heparin 5000 units/ml) 5,000 units EVERY 12 HOURS SUBQ 07/16/18 21:00 08/15/18 20:59 07/18/18 08:52 Insulin Aspart (NovoLOG) BEFORE MEALS AND HS SUBQ 07/16/18 17:49 08/15/18 17:48 07/18/18 12:57 Methylprednisolone Sodium Succinate (Solu-MEDROL) 60 mg EVERY 12 HOURS IVP 07/16/18 21:00 08/15/18 20:59 07/18/18 08:51 Tolu Barajas MD Jul 18, 2018 14:03
[2018-07-18 16:00] VITALS: BP 132/82
--- NOTE | 2018-07-18 19:32 | NUR ---
HAND-OFF: Report given to Alessio Chamorro RN.
--- NOTE | 2018-07-18 19:50 | NUR ---
NURSE NOTES: Received report from MADHAV Guerrero and rounds done. Received pt lying in bed, A&OX4, denies pain at this time, pt on O2 2 liters via nasal canula, O2 sat 98%, no distress noted. IV R AC patent and intact. Bed in low position and locked, side rails up x 2, call ligth within reach. Will continue to monitor.
[2018-07-18 20:00] VITALS: BP 157/68
--- NOTE | 2018-07-18 20:22 | NUR ---
CASE MANAGEMENT: INITIAL REVIEW 77 YO F PRESENTED TO ED FROM HOME CC: DYSPNEA PMHx: DM. HTN. ASTHMA. COPD. SI:COPD EXACERBATION. T 98.1 HR 54 RR 20 B/P 161/81 SATS 99% ON RA K 3.2 GLUCOSE 149 CKMB 4.8 TROPONIN 0.208 IS: DUO NEB HHN X1 NS BOLUS X1 SOLU MEDROL IV X1 PATIENT ADMITTED TO MED/SURG 07/16/2018 @ 0754 DCP: PATIENT TO BE DISCHARGED TO HOME ONCE MEDICALLY CLEARED. PLAN OF CARE: Continue Solumedrol HHN O2 PRN Continue antibiotics for now
[2018-07-19] VITALS (7 sets, daily range): BP systolic 117–154; BP diastolic 79–107
[2018-07-19] MEDS: NovoLOG Insulin Flexpen SUBQ SCH ×4 (05:53→20:15)
[2018-07-19] MEDS: HYDROcodone/Acetamin 10/325 tab ORAL PRN (07:17)
--- NOTE | 2018-07-19 07:27 | NUR ---
HAND-OFF: Report given to MADHAV Martines. Pt in stable condition.
--- NOTE | 2018-07-19 07:37 | NUR ---
NURSE NOTES: Received report from Alessio Casey RN. Patient is awake alert and oriented x4, on 2L NC. No s/s acute distress noted. Patient reporting facial pain, medicated by shift boss nurse. Patient does not want SCD's on at this time, states she will put them on later, education provided. Side rails upx2, bed low and locked, call light in reach. Will continue to monitor.
[2018-07-19] MEDS: Albuterol/Ipratropium 3ml neb HHN PRN (07:58)
[2018-07-19] MEDS: Solu-MEDROL 125mg Inj IVP SCH ×2 (08:38→20:08)
[2018-07-19] MEDS: Heparin 5000 units/ml inj SUBQ SCH ×2 (08:39→20:15)
--- NOTE | 2018-07-19 14:58 | General Progress Note ---
Assessment/Plan Problem List: (1) COPD exacerbation ICD Codes: J44.1 - Chronic obstructive pulmonary disease with (acute) exacerbation SNOMED: 708032193 (2) Hypothyroidism ICD Codes: E03.9 - Hypothyroidism, unspecified SNOMED: 19777495 (3) History of hypertension ICD Codes: Z86.79 - Personal history of other diseases of the circulatory system SNOMED: 710291237 (4) History of chronic CHF ICD Codes: Z86.79 - Personal history of other diseases of the circulatory system SNOMED: 533943315 Assessment/Plan Bronchodilators IV steroids Abxs O2 PT DC planning Subjective Allergies: Coded Allergies: No Known Allergies (Unverified , 06/16/18) Subjective feels the same Objective Last 24 Hour Vital Signs Date Time Temp Pulse Resp B/P (MAP) Pulse Ox O2 Delivery O2 Flow Rate FiO2 07/19/18 12:00 98.9 99 18 134/107 (116) 97 07/19/18 09:00 Nasal Cannula 2.0 Nasal Cannula 2.0 Nasal Cannula 2.0 07/19/18 08:00 98.6 98 18 117/86 (96) 91 07/19/18 07:58 87 17 94 Nasal Cannula 2.0 28 07/19/18 07:58 94 Nasal Cannula 2.0 28 07/19/18 07:58 87 17 Nasal Cannula 2.0 28 07/19/18 07:58 Nasal Cannula 2.0 28 07/19/18 07:47 98.6 07/19/18 04:00 98.6 84 18 154/95 (114) 99 07/19/18 00:00 98.1 75 18 151/79 (103) 98 07/18/18 21:00 Nasal Cannula 2.0 07/18/18 20:09 Nasal Cannula 2.0 28 07/18/18 20:09 97 Nasal Cannula 2.0 28 07/18/18 20:00 98.2 85 18 157/68 (97) 98 07/18/18 16:00 97.7 88 20 132/82 (99) 100 Intake and Output 07/18/18 07/19/18 19:00 07:00 Intake Total 240 ml 100 ml Balance 240 ml 100 ml Intake Oral 240 ml 100 ml # Voids 2 2 # Bowel Movements 1 Height (Feet): 4 Height (Inches): 11.00 Weight (Pounds): 180 Cardiovascular: normal rate Respiratory/Chest: expiratory wheezing - less Edema: no edema noted Generalized Tavo Jorgensen MD Jul 19, 2018 14:57
--- NOTE | 2018-07-19 17:15 | NUR ---
CASE MANAGEMENT: DCPNOTE PATIENT AND FAMILY NOT IN AGREEMENT TO RETURN TO PREVIOUS SNF / [facility]. MADE AWARE. PATIENT REFERRED TO [facility] [phone]
--- NOTE | 2018-07-19 19:41 | NUR ---
HAND-OFF: Report given to Liv COREY.
--- NOTE | 2018-07-19 19:55 | NUR ---
NURSE NOTES: Patient received sitting on a chair in the room. Appears in no acute cardiopulmonary distress at this time. Denies shortness of breath or chest pain. On o2 via NC 2lpm. IV is intact. Call light in reach. Instructed to call for assistance. Will continue to monitor.
[2018-07-20 04:00] VITALS: BP 153/98
[2018-07-20] MEDS: NovoLOG Insulin Flexpen SUBQ SCH ×4 (06:30→21:39)
--- NOTE | 2018-07-20 07:43 | NUR ---
HAND-OFF: Report given to Grant COREY.
--- NOTE | 2018-07-20 07:45 | NUR ---
NURSE NOTES: Patient lying in bed awake. Complain of pain 5/10 and will administer pain medication. Skin intact and dry. On O2 @ 2 L via NC. No complain of distress at this time. IV dressing intact and dry. No bleeding or swelling on IV site. Bed lowest position. Call light within reach. Will continue to monitor.
[2018-07-20 08:00] VITALS: BP 139/80
[2018-07-20] MEDS: Solu-MEDROL 125mg Inj IVP SCH ×2 (09:04→21:18)
[2018-07-20] MEDS: Heparin 5000 units/ml inj SUBQ SCH ×2 (09:05→21:19)
[2018-07-20] MEDS: HYDROcodone/Acetamin 10/325 tab ORAL PRN ×2 (09:08→19:34)
[2018-07-20] MEDS: Albuterol/Ipratropium 3ml neb HHN PRN (09:16)
[2018-07-20 12:00] VITALS: BP 140/75
[2018-07-20 16:00] VITALS: BP 130/71
--- NOTE | 2018-07-20 19:45 | NUR ---
HAND-OFF: Report given to Katlin COREY. Patient in stable condition.
--- NOTE | 2018-07-20 19:46 | NUR ---
NURSE NOTES: Received report & pt from Grant Scott RN. Up in chair, a&ox4, on O2 via NC @ 2LPM, family members at bedside. No s/s of acute distress & c/o 9/10 pain at this time. AM shift just gave PRN pain med. IV site intact & S/L'd. Bed in lowest position, call light within reach. Will continue to monitor.
[2018-07-20 20:00] VITALS: BP 150/94
[2018-07-20] MEDS: guaiFENesin w/Codeine 5ml Liq ud ORAL PRN (21:25)
[2018-07-21] VITALS (8 sets, daily range): BP systolic 129–171; BP diastolic 67–99
[2018-07-21] MEDS: NovoLOG Insulin Flexpen SUBQ SCH ×4 (05:58→20:26)
[2018-07-21] MEDS: HYDROcodone/Acetamin 10/325 tab ORAL PRN ×2 (06:02→21:47)
--- NOTE | 2018-07-21 07:45 | NUR ---
HAND-OFF: Report given to Mary ROBERTS.
[2018-07-21] MEDS: Heparin 5000 units/ml inj SUBQ SCH ×2 (08:37→20:26)
[2018-07-21] MEDS: Solu-MEDROL 125mg Inj IVP SCH (09:43)
--- NOTE | 2018-07-21 10:05 | NUR ---
NURSE NOTES: patient is A/A/Ox4, ambulate with a steady gait. Sits in a chair this am for breakfast. No c/o pain/discomfort. call light is within reach. bed kept in the lowest position. siderails are up x2. IV access patent and intact. will cont to monitor.
[2018-07-21] MEDS: Albuterol/Ipratropium 3ml neb HHN PRN (11:30)
--- NOTE | 2018-07-21 14:44 | General Progress Note ---
Assessment/Plan Problem List: (1) COPD exacerbation ICD Codes: J44.1 - Chronic obstructive pulmonary disease with (acute) exacerbation SNOMED: 716792759 (2) Hypothyroidism ICD Codes: E03.9 - Hypothyroidism, unspecified SNOMED: 48373075 (3) History of hypertension ICD Codes: Z86.79 - Personal history of other diseases of the circulatory system SNOMED: 889660162 (4) History of chronic CHF ICD Codes: Z86.79 - Personal history of other diseases of the circulatory system SNOMED: 636676613 Assessment/Plan Bronchodilators po steroids Dc Abxs O2 PT DC today Subjective Allergies: Coded Allergies: No Known Allergies (Unverified , 06/16/18) Subjective feels better Objective Last 24 Hour Vital Signs Date Time Temp Pulse Resp B/P (MAP) Pulse Ox O2 Delivery O2 Flow Rate FiO2 07/21/18 11:51 98.0 95 19 134/77 (96) 92 07/21/18 11:31 96 22 99 Nasal Cannula 2.0 28 07/21/18 11:23 91 16 95 Nasal Cannula 2.0 28 07/21/18 09:00 Nasal Cannula 2.0 Nasal Cannula 2.0 Nasal Cannula 2.0 07/21/18 08:00 98.4 96 20 136/80 (98) 93 07/21/18 07:54 Nasal Cannula 2.0 28 07/21/18 07:54 97 Nasal Cannula 2.0 28 07/21/18 07:54 81 18 Nasal Cannula 2.0 28 07/21/18 04:00 98.4 70 20 151/86 (107) 95 07/21/18 00:00 98.8 73 20 134/81 (98) 96 07/20/18 21:00 Nasal Cannula 2.0 Nasal Cannula 2.0 Nasal Cannula 2.0 07/20/18 20:00 Nasal Cannula 2.0 28 07/20/18 20:00 96 Nasal Cannula 2.0 28 07/20/18 20:00 98.9 92 20 150/94 (112) 94 07/20/18 20:00 88 18 Nasal Cannula 2.0 28 07/20/18 16:00 98.5 77 20 130/71 (90) 95 Intake and Output 07/20/18 07/21/18 18:59 06:59 Intake Total 600 ml 420 ml Balance 600 ml 420 ml Intake Oral 600 ml 420 ml # Voids 3 3 Height (Feet): 4 Height (Inches): 11.00 Weight (Pounds): 176 Cardiovascular: normal rate Respiratory/Chest: lungs clear Tavo Jorgensen MD Jul 21, 2018 14:44
[2018-07-21] MEDS ORDERED: ROBITUSSIN AC5 ML ORAL (14:49)
[2018-07-21] MEDS ORDERED: DUONEB 0.5-3(2.53 ML HHN (14:49)
[2018-07-21] MEDS ORDERED: HEPARIN SO5000 UNIT2 SUBQ (14:49)
[2018-07-21] MEDS ORDERED: PREDNISONE20 MG ORAL (14:49)
--- NOTE | 2018-07-21 15:46 | NUR ---
CASE MANAGEMENT: DCPNOTE UPON DISCHARGE PATIENT WILL TRANSFER TO [facility] [phone] SKILLED ROOM 33B PATIENT IN AGREEMENT WITH TRANSFERRING TO THIS FACILITY TRANSPORTATION VIA [facility] [id number] ETA 18:00
--- NOTE | 2018-07-21 16:01 | NUR ---
CASE MANAGEMENT: REVIEW SI: SOB T 98.2 HR 94 RR 22 BP 129/67 SAT 93% NC/2L IS: PREDNISONE PO QD HEPARIN SQ Q12HR ALBUTEROL HHN Q MED/SURG STATUS DCP: PATIENT IS FROM HOME
--- NOTE | 2018-07-21 16:11 | NUR ---
NURSE NOTES: report given to Yayo @ [facility]. ETA will be at 1800H.
--- NOTE | 2018-07-21 16:13 | NUR ---
NURSE NOTES: Informed Naman frey for the discharge. Addendum: 07/21/18 at 1927 by SOCRATES PATTERSON LVN personal belongings noted. and signed the discharge instructions.
--- NOTE | 2018-07-21 19:26 | NUR ---
HAND-OFF: Report given to
--- NOTE | 2018-07-21 20:29 | NUR ---
NURSE NOTES: Received report from AM RN patient is awake and oriented. VSS. No SOB noted. BS 108. Needs attended. Due meds given. In stable condition.
--- NOTE | 2018-07-21 21:48 | NUR ---
NURSE NOTES: Patient 8/10 generalized body pain. PRN norco given. EMT ready for transfer waiting to stabilize patients Pain and BP 168/99. [facility] called regarding patients condition.
[2018-07-22] VITALS: BP_SYST 128; BP_SYST 168; BP_DIAS 77; BP_DIAS 96
--- NOTE | 2018-07-22 00:18 | NUR ---
NURSE NOTES: Patients blood pressure at 168/96. Unstable for transfer at the moment. MD made aware. Discharge cancelled for today. No new orders. Needs attended. Will continue to monitor.
[2018-07-22 04:00] VITALS: BP 154/88
[2018-07-22] MEDS: NovoLOG Insulin Flexpen SUBQ SCH ×3 (06:22→17:11)
[2018-07-22 08:00] VITALS: BP 152/89
--- NOTE | 2018-07-22 08:03 | NUR ---
NURSE NOTES: Report received from outgoing RN, rounds made. Patient sitting with HOB elevated, calm, no s/s of respiratory distress. BP 152/89 mmHg. Denies pain. Pending discharge plans discussed. Call light in reach. Will continue to monitor.
[2018-07-22] MEDS: Heparin 5000 units/ml inj SUBQ SCH (08:40)
[2018-07-22 12:00] VITALS: BP 152/90
--- NOTE | 2018-07-22 12:05 | NUR ---
NURSE NOTES: Patient scheduled for discharge/transfer to [facility] today 1330 via ambulance, [facility] arranged. Report called to Clemencia COREY at [facility]. Patient and daughter, Josselin notified of above, verbalized understanding.
--- NOTE | 2018-07-22 14:08 | General Progress Note ---
Assessment/Plan Problem List: (1) COPD exacerbation ICD Codes: J44.1 - Chronic obstructive pulmonary disease with (acute) exacerbation SNOMED: 101020293 (2) Hypothyroidism ICD Codes: E03.9 - Hypothyroidism, unspecified SNOMED: 49079768 (3) History of hypertension ICD Codes: Z86.79 - Personal history of other diseases of the circulatory system SNOMED: 869885303 (4) History of chronic CHF ICD Codes: Z86.79 - Personal history of other diseases of the circulatory system SNOMED: 212688222 Assessment/Plan Bronchodilators po steroids DC today Subjective Allergies: Coded Allergies: No Known Allergies (Unverified , 06/16/18) Subjective feels better Objective Last 24 Hour Vital Signs Date Time Temp Pulse Resp B/P (MAP) Pulse Ox O2 Delivery O2 Flow Rate FiO2 07/22/18 12:00 98.4 69 17 152/90 (110) 98 07/22/18 09:00 Nasal Cannula 2.0 Nasal Cannula 2.0 Nasal Cannula 2.0 07/22/18 08:05 73 20 Nasal Cannula 2.0 28 07/22/18 08:00 98.1 81 18 152/89 (110) 98 07/22/18 05:33 96 Nasal Cannula 2.0 28 07/22/18 05:33 Nasal Cannula 2.0 28 07/22/18 05:32 86 20 Nasal Cannula 2.0 28 07/22/18 04:00 97.6 81 18 154/88 (110) 98 07/22/18 00:00 98.4 83 18 168/96 (120) 96 07/21/18 22:30 98.1 82 18 171/99 (123) 95 07/21/18 21:00 Nasal Cannula 2.0 Nasal Cannula 2.0 Nasal Cannula 2.0 07/21/18 20:00 98.4 84 19 133/72 (92) 94 07/21/18 16:00 98.2 94 20 129/67 (87) 93 Intake and Output 07/21/18 07/22/18 19:00 07:00 Intake Total 1010 ml 600 ml Output Total 3 ml Balance 1010 ml 597 ml Intake Oral 1010 ml 600 ml Output Urine Total 3 ml # Voids 2 Height (Feet): 4 Height (Inches): 11.00 Weight (Pounds): 176 Cardiovascular: normal rate Respiratory/Chest: lungs clear Rahban,Tavo MD Jul 22, 2018 14:08
--- NOTE | 2018-07-22 15:00 | NUR ---
NURSE NOTES: Patient with one time order of Norvasc 5 mg, oral, blood pressure assessed 153/93 mmHg, Norvasc administered as ordered. 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 Blood pressure rechecked 164/104 mmHg. [facility]/Clemencia RN notified. Transfer held, notified. Patient calm, denies pain. Awaiting call back.
[2018-07-22 16:00] VITALS: BP 134/81
--- NOTE | 2018-07-22 16:15 | NUR ---
NURSE NOTES: Patient resting in bed, no complains of distress. Vitals signs assessed, T 98.2 P 72 R 19 BP 134/81 O2 saturation 99% on RA. Dr. Jorgensen aware, telephone order received for okay to transfer to [facility], patient aware, daughter called unable to reach. [facility] ambulance burr picker scheduled for 1700. Clemencia COREY at [facility] notified of above.
--- NOTE | 2018-07-22 19:30 | NUR ---
NURSE NOTES: Patient transferred to [facility] via [facility] ambulance at 1925, in stable condition. Vitals assessed, within normal range. IV heplock removed. Daughter at bedside.
--- NOTE | 2018-07-23 10:40 | Discharge Summary ---
Discharge Summary Discharge Summary _ DATE OF ADMISSION: 07/16/2018 DATE OF DISCHARGE: 07/22/2018 DISCHARGED BY: Dr. Tavo Jorgensen CONSULTANTS: Dr. Tolu Barajas BRIEF HOSPITAL COURSE: Patient is a 77-year-old -[place] female, who was apparently recently in the hospital for COPD exacerbation. She was sent to a [facility]pc facility and subsequently went home. However she had been getting more and more short of breath and was complaining of cough with sputum production. She was brought to the emergency room for further evaluation. She has medical history significant for diabetes, hypertension and COPD. On evaluation at the ED, she was given breathing treatment. Blood work did not show any leukocytosis, hemoglobin and hematocrit were stable. Electrolytes were normal. Troponin was 0.208. Chest x-ray done showed cardiomegaly with interstitial congestion. EKG showed normal sinus rhythm with no acute ischemic changes. She was given aspirin. She improved after breathing treatment. Influenza screen was negative. She was then admitted for evaluation of COPD exacerbation. Leg Breaker was consulted. She was given supplemental O2. She was placed Solu-Medrol. She was given nebulizer treatment. She was given Zosyn and po doxycycline. She was placed on heparin for DVT prophylaxis. Blood glucose was monitored. She was placed on NovoLog sliding scale. She was started on Norvasc for blood pressure control. Steroid was tapered to p.o. She was given PT mobility. She was eventually transferred to [facility]. FINAL DIAGNOSES: Acute COPD exacerbation Hypothyroidism Hypertension Chronic CHF Diabetes mellitus Elevated troponin DISPOSITION: Patient was discharged to a SNF. DISCHARGE MEDICATIONS: Refer to Discharge Medication List. I have been assigned to dictate discharge summary on this account, and I was not involved in the patient's management. Mayra Richards NP Jul 23, 2018 10:40
--- NOTE | 2018-07-24 15:49 | Cardiology Report ---
APPROVED REPORT EKG Measurement Heart [id number] ME 108P2 [id number] Sinus rhythm with short ME with fusion complexes RBBB Prolonged QT Abnormal ECG
== END 2018-07-22 19:24 | DRG 192 ==
LOC: EDBEDREQ 07:24 → EMR 07:44 → 2E 07:54 → EDBEDREQ 08:15 → 3E 16:37
DX: J44.1 Chronic obstructive pulmonary disease with (acute) exacerbation (principal); E03.9 Hypothyroidism, unspecified; E11.9 Type 2 diabetes mellitus without complications; I11.0 Hypertensive heart disease with heart failure; I50.9 Heart failure, unspecified
CPT/HCPCS: 36415; 71045; 80048; 80053; 81003; 82550; 82553; 82962; 83605; 83735; 83880; 84484; 85025; 86710; 87040; 93005; 94640; 94664; 94760; 96365; 96367; 96375; 99291; J1815; J7620; J8499

== ENCOUNTER 2019-06-02 12:55 | Outpatient (CLI) | payer MEDICARE, OTHER ==
[~2019-06-02 12:55] MED LIST changes: +DUONEB 0.5-3(2.53 ML HHN; +HEPARIN SO5000 UNIT2 SUBQ; +PREDNISONE20 MG ORAL; +ROBITUSSIN AC5 ML ORAL
== END 2019-06-02 14:55 | disposition home or self-care (01) ==
LOC: VAS 12:55
DX: R60.0 Localized edema (principal)
CPT/HCPCS: 93970